=== PATIENT | female | born 1940 | race Caucasian/White ===

== ENCOUNTER 2016-08-29 01:51 | Inpatient (IN) | payer OTHER ==
--- NOTE | ~2016-08-29 | CT71 ---
[facility] A Service of [facility] RADIOLOGY TEXT RESULTS PATIENT: DONNELL TOLENTINO LOCATION: [place] [address] : 38 UNIT #: [id number] AGE: [address]: Sly Camp MD SEX: F ORDER DR: [id number] [facility] [address] [facility]. [place], [place] [address] [id number] I MR#: [id number] Acc #: [id number] NAME: DONNELL TOLENTINO : 1940 SEX: F STUDY DATE/TIME: 08/29/2016 01:35 UNIT: CEDOF ROOM: 20041 STUDY DESCRIPTION: CT Head Wo Contrast Attending Physician: Krystyna Gutierrez M.D. Ordering Physician: Micheal Mon D.O. Primary Care Physician: Primary Care Physician No MEDICAL IMAGING REPORT This report is preliminary unless electronic signature is present EXAM Head CT 08/29 0238 hours INDICATION Acute mental status changes with fever for the last 2 days. Patient currently unresponsive and confused. Generalized weakness. FINDINGS Axial images were obtained from base to the vertex without contrast. This CT exam was performed with one or more of the following radiation dose reduction techniques: automatic exposure control, adjustment of mA and/or kV according to patient size, and iterative reconstruction. Comparison made with 07/06/2016. There is generalized atrophy. Ventricular size and configuration are stable. Chronic small vessel ischemic changes are again seen in the white matter. No acute infarct or hemorrhage is seen. There are no masses. There are no skull fractures. Visualized paranasal sinuses and mastoid air cells are clear. IMPRESSION No acute intracranial abnormality. No change from 07/06/2016. Dictated by... Graham Michel Jr., M.D. THIS IS AN ELECTRONICALLY VERIFIED REPORT Graham Michel Jr., M.D. at 09/01/2016 7:20 AM DARIAN/isai TD: 08/29/2016 08:37 [facility] A Service of [facility] RADIOLOGY TEXT RESULTS PATIENT: DONNELL TOLENTINO LOCATION: [facility] 576-01 : 38 UNIT #: [id number] AGE: [address]: Sly Camp MD SEX: F ORDER DR: JOB #: [id number] MEDICAL IMAGING REPORT COPY
--- NOTE | ~2016-08-29 | US140 ---
[facility] A Service of [facility] RADIOLOGY TEXT RESULTS PATIENT: DONNELL TOLENTINO LOCATION: [facility] : 38 UNIT #: [id number] AGE: [address]: Sly Camp MD SEX: F ORDER DR: [id number] [facility] [address] [place], [place] [address] [id number] I MR#: [id number] Acc #: [id number] NAME: DONNELL TOLENTINO : 1940 SEX: F STUDY DATE/TIME: 09/02/2016 15:29 UNIT: [facility] ROOM: [facility] STUDY DESCRIPTION: US UE Veins Unilat or Ltd Stdy Attending Physician: Sly Camp M.D. Ordering Physician: Sly Camp M.D. Primary Care Physician: Primary Care Physician No MEDICAL IMAGING REPORT This report is preliminary unless electronic signature is present EXAM Right upper extremity venous duplex, 09/02/2016 HISTORY Right upper extremity edema for 1 day today, evaluate for deep vein thrombosis. FINDINGS Marques-scale images of the right upper extremity were obtained, as well as Doppler waveform spectral analysis and color flow Doppler imaging. There is normal blood flow and compressibility in the right internal jugular vein as well as the right subclavian, axillary, brachial, cephalic and basilic veins. There is no evidence of deep vein thrombosis in the right upper extremity. IMPRESSION Negative right upper extremity venous duplex with no evidence of deep vein thrombosis. Dictated by... Carmine Armstrong M.D. THIS IS AN ELECTRONICALLY VERIFIED REPORT Carmine Armstrong M.D. at 09/03/2016 10:54 AM AMINATA/jc TD: 09/02/2016 21:12 JOB #: [id number] MEDICAL IMAGING REPORT COPY
--- NOTE | ~2016-08-29 | DS ---
Unit #: [id number] #: [id number] Patient: DONNELL TOLENTINO [id number] [address] [place], [place] [address] [id number] I MR#: [id number] NAME: DONNELL TOLENTINO. ROOM: 576 Age: 75 Sex: F Admission Date: 08/29/2016 : 1940 Discharge Date: 09/03/2016 Attending Physician: Sly Camp M.D. Primary Care Physician: Kiki Primary Care Physician DISCHARGE SUMMARY ADMITTING DIAGNOSES 1. Altered mental status secondary to urosepsis. 2. Sepsis with urinary tract infection and bacteremia with Escherichia coli extended spectrum beta-lactamase. 3. History of paroxysmal atrial fibrillation. 4. Hypertension. 5. Gout. 6. History of adrenal insufficiency. 7. Acute kidney injury. CONSULTANTS 1. Dr. Vazquez. 2. Dr. Chadwick. HISTORY OF PRESENT ILLNESS The patient is a 75-year-old lady with multiple medical problems including paroxysmal atrial fibrillation, tremor, gout, hypertension, adrenal insufficiency. Presented to the emergency room from the senior living on the with the chief complaint of altered mental status. HOSPITAL COURSE In the initial evaluation, she had a CT of the head, which was negative for any acute pathology. She was febrile up to 102.2 with blood pressure 81/54. She was started on pressors, IV fluids, and her blood pressure came back up. She had 2 out of 2 blood cultures positive on the with ESBL E-coli, as well as urinary tract infection. She was switched to meropenem. Her repeat blood cultures on the were negative. For the acute kidney injury, Dr. Vazquez/Dr. Chiang followed. She had a renal ultrasound. There was a concern for renal mass. We got a CT of the abdomen without contrast, which showed it was a renal cyst. She is clinically doing better. She will be discharged back to the senior living today. She does have a PICC line in place, and I am requesting she get antimicrobials until September 14, 2016. After she is done with the antimicrobials, the PICC line can be removed. I spoke with the patient and her daughter at length, and they are agreeable for the plan. PHYSICAL EXAMINATION ON THE DAY OF DISCHARGE VITAL SIGNS: Temperature 97.6, pulse rate 74, respiratory rate 16, blood pressure 164/78. GENERAL: The patient is alert and oriented x3, lying in bed, no acute distress. HEENT: Normocephalic, atraumatic. No icterus. PERRLA. Extraocular muscles are intact. NECK: Supple. No JVD. Unit #: [id number] #: [id number] Patient: DONNELL TOLENTINO HEART: S1, S2. Regular rate and rhythm. CHEST: Bilateral equal air entry. Clear to auscultation. ABDOMEN: Soft, nontender. EXTREMITIES: No edema. Normal peripheral pulses. DISCHARGE MEDICATIONS 1. Combivent 3 mL nebulizer q.4 hours p.r.n. shortness of breath. 2. Prednisone 15 mg p.o. daily for 5 more days then stop. 3. Tylenol 650 mg q.6 p.r.n. 4. Amiodarone 100 mg p.o. daily. 5. Neurontin 100 mg at bedtime. 6. Mysoline 50 mg p.o. at bedtime. 7. Remeron 30 mg p.o. at bedtime. 8. Zofran 8 mg p.o. q.8 hours p.r.n. nausea or vomiting. 9. Benadryl 12.5 p.o. q.6 p.r.n. 10. Claritin 10 mg p.o. daily. 11. Xanax 0.25 mg q.8 hours. 12. Coreg 3.125 mg b.i.d. 13. Senna 8.6 mg p.o. b.i.d. 14. Dextromethorphan/quinidine 1 tab p.o. b.i.d. 15. Lasix 20 mg daily. 16. Lipitor 10 mg at bedtime. 17. Ferrous sulfate 325 mg p.o. daily. 18. Sinemet 10/100 mg 2 tabs p.o. q.i.d. 19. Tramadol 50 mg p.o. q.6. 20. Prilosec 20 mg b.i.d. 21. KCl 40 mEq p.o. daily. 22. Baclofen 10 mg t.i.d. 23. Celebrex 200 mg p.o. b.i.d. 24. Meropenem 500 mg IV q.8 hours until September 14, 2016. Then, it is okay to remove PICC line. NOTE: Total time spent in her care - 35 minutes. Dictated by... Zach Urbina TD: 09/03/2016 13:24 JOB #: [id number] DISCHARGE SUMMARY X X DISCHARGE SUMMARY
--- NOTE | ~2016-08-29 | CR72 ---
[facility] A Service of [facility] RADIOLOGY TEXT RESULTS PATIENT: DONNELL TOLENTINO LOCATION: [place] [address] : 38 UNIT #: [id number] AGE: [address]: Sly Camp MD SEX: F ORDER DR: [id number] [facility] [address] [place], [place] [address] [id number] I MR#: [id number] Acc #: [id number] NAME: DONNELL TOLENTINO : 1940 SEX: F STUDY DATE/TIME: 08/29/2016 01:43 UNIT: CEDOF ROOM: 53688 STUDY DESCRIPTION: CR Chest Single View Portable Attending Physician: Krystyna Gutierrez M.D. Ordering Physician: Micheal Mon D.O. Primary Care Physician: No Primary Care Physician MEDICAL IMAGING REPORT This report is preliminary unless electronic signature is present EXAM Portable chest, 08/29 at 0143 hours. INDICATIONS Fever for 2 days with mental status changes and weakness. FINDINGS AP portable chest is compared with 07/06/2016 and 06/21/2016. Cardiomegaly is stable. Prominent bilateral rei likely reflect enlarged central pulmonary arteries. Minimal infiltrate or atelectasis noted in the left base. Lungs otherwise are clear. No pneumothorax. IMPRESSION Lower volume inspiration. Stable cardiomegaly. There is mild infiltrate or atelectasis in the left base. There is prominence of the rei bilaterally, which probably reflects enlarged pulmonary arteries and pulmonary arterial hypertension. Dictated by... Graham Michel Jr., M.D. THIS IS AN ELECTRONICALLY VERIFIED REPORT Graham Michel Jr., M.D. at 09/01/2016 7:19 AM KELK/fe TD: 08/29/2016 08:05 JOB #: [id number] MEDICAL IMAGING REPORT COPY
--- NOTE | ~2016-08-29 | CT4 ---
[facility] A Service of [facility] RADIOLOGY TEXT RESULTS PATIENT: DONNELL TOLENTINO LOCATION: [place] [address] : 38 UNIT #: [id number] AGE: [address]: Sly Camp MD SEX: F ORDER DR: [id number] [facility] [address] [facility] [place], [place] [address] [id number] I MR#: [id number] Acc #: [id number] NAME: DONNELL TOLENTINO. : 1940 SEX: F STUDY DATE/TIME: 09/02/2016 10:56 UNIT: [facility] ROOM: [facility] STUDY DESCRIPTION: CT Abd and Pelv Wo Cont Attending Physician: Sly Camp M.D. Ordering Physician: Anastacia Chiang M.D. Primary Care Physician: No Primary Care Physician MEDICAL IMAGING REPORT This report is preliminary unless electronic signature is present EXAM CT abdomen and pelvis without contrast INDICATIONS Left renal mass. Burning with urination for the past week. PROCEDURE Noncontrast CT of the abdomen and pelvis TECHNIQUE This CT exam was performed with one or more of the following radiation dose reduction techniques: automatic control, adjustment of mA and/or kV according to patient size, and iterative reconstruction. COMPARISON 05/27/2014 FINDINGS Included lung bases predominately clear. The liver spleen adrenal glands pancreas unremarkable. There is a stone in the gallbladder fossa. Patient appears to be post cholecystectomy. Could represent a dropped stone or possibly a stone in a contracted gallbladder. Correlate with operative history. The bowel loops are nondilated. No evidence for a renal mass on this unenhanced study. There is a 2.1 cm cyst in the lower pole of the right kidney. PELVIS WITHOUT CONTRAST: Previous hysterectomy. No pelvic mass or fluid. No aggressive appearing bone lesion. IMPRESSION [facility] A Service [facility] RADIOLOGY TEXT RESULTS PATIENT: DONNELL TOLENTINO LOCATION: [place] [address] : 38 UNIT #: [id number] AGE: [address]: Sly Camp MD SEX: F ORDER DR: 1. A 2.1 cm cyst in the lower pole of the right kidney. No evidence for a solid renal mass on this unenhanced CT. 2. A stone in the gallbladder fossa could be a dropped stone or possibly a stone in a contracted gallbladder. The gallbladder itself is not well seen. Correlate with operative history. Dictated by... Virgilio Regan M.D. THIS IS AN ELECTRONICALLY VERIFIED REPORT Virgilio Regan M.D. at 09/03/2016 7:08 AM DILSHAD/antionette TD: 09/02/2016 14:23 JOB #: [id number] MEDICAL IMAGING REPORT COPY
--- NOTE | ~2016-08-29 | CO ---
Unit #: [id number] #: [id number] Patient: DONNELL TOLENTINO [id number] [address] [address] [id number] I MR#: [id number] NAME: DONNELL TOLENTINO. ROOM: 576 Age: 75 Sex: F Admission Date: 08/29/2016 : 1940 Attending Physician: Sly Camp M.D. Primary Care Physician: No Primary Care Physician CONSULTATION REPORT REQUESTING PHYSICIAN Dr. Chiang. REASON FOR CONSULTATION Urinary tract infection and sepsis due to resistant microorganism. HISTORY OF PRESENT ILLNESS This 75-year-old, white female with multiple medical problems including atrial fibrillation, gout, hypertension, and adrenal insufficiency presented with mental status changes and fever. Other workup showed UTI with pyuria and positive blood culture for ESBL positive E. coli for which meropenem was started. Her CT scan shows no obstruction. There was some lesion, which are still being investigated. ID was consulted for antibiotic recommendations. Patient currently stable. According to the daughter, she is significantly improved. She is more awake and responsive. She is now afebrile. She did have a fever of 102.2 in the ER on admission. She denies any pain and appears to be improving slowly. PAST MEDICAL HISTORY Adrenal insufficiency, essential tremors, atrial fibrillation, osteoarthritis, hypertension, gout, and Parkinson disease. PREVIOUS SURGERIES Tonsillectomy, EGD, (1) hysterectomy, laminectomy, and cholecystectomy. SOCIAL HISTORY Lives in detention. No history of alcohol, drug, or tobacco abuse. She is a DNR. FAMILY HISTORY Positive for lung cancer. DRUG ALLERGIES Penicillin, morphine, aspirin, and pneumococcal vaccine. MEDICATIONS Current medications are reviewed. She is on: 1. Meropenem in addition to other medications. She is tolerating meropenem well without any evidence of allergic reaction. Home medications include: 2. Tramadol. 3. Pacerone. 4. Potassium. Unit #: [id number] #: [id number] Patient: DONNELL TOLENTINO 5. Levodopa. 6. Baclofen. 7. Prilosec. 8. Celebrex. 9. Mysoline. 10. Lipitor. 11. Claritin. 12. Remeron. 13. Neurontin. 14. Benadryl. 15. Alprazolam. 16. Acetaminophen. SYSTEMIC REVIEW Currently, she has no obvious symptoms. She is more awake. She denies any abdominal pain, dysuria, cough, or mental status changes. PHYSICAL EXAMINATION GENERAL APPEARANCE: Reveals elderly, white female who is awake. She does follow simple commands and appears to be in no distress. VITAL SIGNS: Temperature 97.8, heart rate 60, respirations (2) , and blood pressure 122/59. She had a fever of 101 on August 29. Since then, she has been afebrile. She is somewhat obese with trace edema bilaterally. NECK: Supple. SKIN: IV site is clean. LUNGS: Clear. HEART: Heart sounds are normal. ABDOMEN: Soft and nontender. Feeding tube is in place. NEUROLOGIC: She is awake and able to move all four extremities. DIAGNOSTIC STUDIES LABORATORY: Blood cultures: ESBL positive E. coli. Urine culture: ESBL positive E. coli as well. Repeat blood cultures are negative to date. Sodium is 139, potassium 4, chloride 113, CO2 24, BUN 29, and creatinine 1. White count is 7.9, hemoglobin 10, and platelets 70. Urinalysis showed pyuria. IMAGING: CT scan of the abdomen and pelvis shows a cyst in the kidney. There were no solid lesions. Chest x-ray shows no effusions, mild cardiomegaly, mild interstitial prominence, and no obvious consolidation. CT of the head was negative for acute disease. IMPRESSION ESBL positive urinary tract infection with secondary bacteremia. Patient is clinically stable and improving with meropenem. RECOMMENDATIONS Agree with meropenem, which should be continued for at least 14 days. Tobramycin should be discontinued. Further recommendations will follow. Dictated by... Chuy Chadwick M.D. Unit #: [id number] #: [id number] Patient: DONNELL TOLENTINO SHEILA/fe TD: 09/04/2016 08:17 JOB #: [id number] CONSULTATION REPORT X Chuy Chadwick MD CONSULTATION REPORT
--- NOTE | ~2016-08-29 | US77 ---
[facility] A Service of [facility] RADIOLOGY TEXT RESULTS PATIENT: DONNELL TOLENTINO LOCATION: [place] [address] : 38 UNIT #: [id number] AGE: [address]: Sly Camp MD SEX: F ORDER DR: [id number] [facility] [address] [facility]. [place], [place] [address] [id number] I MR#: [id number] Acc #: [id number] NAME: DONNELL TOLENTINO. : 1940 SEX: F STUDY DATE/TIME: 08/29/2016 8:58 UNIT: CEDOF ROOM: 62929 STUDY DESCRIPTION: US Kidney Bilateral Complete Attending Physician: Sly Camp M.D. Ordering Physician: Krystyna Gutierrez M.D. Primary Care Physician: No Primary Care Physician MEDICAL IMAGING REPORT This report is preliminary unless electronic signature is present EXAM bilateral renal ultrasound, 08/29/2016. HISTORY 75-year-old male with acute kidney injury. TECHNIQUE Marques-scale ultrasound imaging of both kidneys and the urinary bladder. FINDINGS The exam is markedly limited, due to ultrasound attenuation related to patient body habitus as well as obscuring overlying bowel gas, particularly on the left. There is no hydronephrosis on the right or left. Right kidney is normal in size. Accurate left renal measurements could not be obtained, due to limitations noted above. Small benign cyst in the lower pole right kidney, best characterized on CT examination 05/27/2014. Small mass versus pseudo mass, left mid kidney, not present on the previous CT study. Recommend followup CT examination of the kidneys for further evaluation when clinically appropriate. Urinary bladder is poorly seen but is grossly negative. IMPRESSION 1. Technically limited study, as noted above. Particularly poor visualization of the left kidney. 2. No evidence of hydronephrosis on the right or left. 3. Right lower pole renal cyst, unchanged since CT examination 05/27/2014. 4. Small hypoechoic mass versus pseudo mass in the left mid kidney, [facility] RADIOLOGY TEXT RESULTS PATIENT: DONNELL TOLENTINO LOCATION: [facility] 576-01 : 38 UNIT #: [id number] AGE: [address]: Sly Camp MD SEX: F ORDER DR: present on the prior CT study. Recommend followup CT examination for further assessment when clinically appropriate. Dictated by... Cosmo Tam M.D. THIS IS AN ELECTRONICALLY VERIFIED REPORT Cosmo Tam M.D. at 08/29/2016 4:53 PM DANIEL/marcello TD: 08/29/2016 13:30 JOB #: [id number] MEDICAL IMAGING REPORT COPY
--- NOTE | ~2016-08-29 | HP ---
Unit #: [id number] #: [id number] Patient: DONNELL TOLENTINO [id number] [address] [address] [id number] I MR#: [id number] NAME: DONNELL TOLENTINO. ROOM: 95866 Age: 75 Sex: F Admission Date: 08/29/2016 : 1940 Attending Physician: Krystyna Gutierrez M.D. Primary Care Physician: No Primary Care Physician HISTORY AND PHYSICAL CHIEF COMPLAINT UTI, altered mental status. HISTORY OF PRESENT ILLNESS The patient is a 75-year-old female with a past medical history of paroxysmal atrial fibrillation, tremor, gout, hypertension, adrenal insufficiency, who presented to the emergency department from the [facility] for evaluation of the above. History is obtained from chart review and discussion with ER staff as well as the patient's daughter, Cele Nguyễn, who is at the bedside. The patient has apparently had a two day history of decreased responsiveness. The patient's daughter states that she was not complaining of anything in particular when she say her on August 27, 2016. She does have some difficulty swallowing at baseline. She had not been having any cough. Upon arrival in the emergency department, the patient's oxygen saturation was 100% on room air. Temperature was 102.2, pulse 80, blood pressure 152/68. During the course of her evaluation in the emergency department, blood pressure dropped to 81/34 systolic, most recently 107/57. She did receive one liter of normal saline in the emergency department. Chest x-ray shows findings concerning for infiltrate involving the left base. She was given vancomycin, tobramycin and aztreonam. She is being admitted to [facility] for evaluation and further treatment. PAST MEDICAL HISTORY 1. Admission to [facility] June 21 through the 2015 for altered mental status secondary to hypoglycemia. She was found to have adrenal insufficiency and was discharged home on prednisone. 2. Adrenal insufficiency, maintained on prednisone. 3. Tremor, not followed by neurology. 4. Paroxysmal atrial fibrillation, not on chronic anticoagulation. 5. Osteoarthritis. 6. Hypertension. 7. Gout. 8. Echocardiogram December 19, 2013, showed an ejection fraction of 60% with moderate concentric left ventricular hypertrophy, mild mitral regurgitation, mild tricuspid regurgitation, mild aortic regurgitation. Right ventricular systolic pressure was elevated at 30 to 40 mmHg. 9. Parkinson's. The patient's daughter denies a history of Parkinson's. However, the patient is on carbidopa/levodopa. Unit #: [id number] #: [id number] Patient: DONNELL TOLENTINO PAST SURGICAL HISTORY 1. Tonsillectomy. 2. EGD. 3. PEG tube placement and removal. 4. Hysterectomy. 5. Laminectomy. 6. Cholecystectomy. SOCIAL HISTORY The patient lives at a penitentiary. There is no tobacco or alcohol use. Her code status is a DO NOT RESUSCITATE. FAMILY HISTORY Notable for her mother having lung cancer. ALLERGIES Penicillin, morphine, aspirin, pneumococcal vaccine. HOME MEDICATIONS 1. Tramadol. 2. Pacerone. 3. Potassium. 4. Senna. 5. Iron. 6. Levodopa/carbidopa. 7. Baclofen. 8. Cranberry. 9. Prilosec. 10. Nuedexta. 11. Celebrex. 12. Mysoline. 13. Nitrofurantoin. 14. Lipitor. 15. Claritin. 16. Remeron. 17. Neurontin. 18. Zofran. 19. Benadryl. 20. Alprazolam. 21. Acetaminophen. Home medications will need to be reviewed and verified. REVIEW OF SYSTEMS A ten point review of systems is unobtainable from the patient due to altered mental status but negative except as indicated in HPI per the family. DIAGNOSTIC STUDIES CARDIOVASCULAR: EKG shows normal sinus rhythm with a rate of 77 beats per minute. A right bundle branch block is present. IMAGING: Chest x-ray shows infiltrate versus atelectasis involving the left base. CT of the head shows nothing acute. LABORATORY: Arterial blood gas shows pH of 7.455, pCO2 of 39.1, pO2 of Unit #: [id number] #: [id number] Patient: DONNELL TOLENTINO 55.3 on room air. Rapid flu screen is negative. Complete blood count notable for platelets of 90. Ammonia level is 9, lactic acid 1.9. Urinalysis notable for 3+ leukocyte esterase, 2+ protein, 3+ blood with 50-100 red blood cells, innumerable white blood cells, 4+ bacteria. Comprehensive metabolic panel notable for sodium of 134, potassium is 5.4, chloride is 97, glucose 114. BUN and creatinine 49 and 2.1 respectively. Albumin is 3.2. Tylenol, salicylate and alcohol levels are negative. INR is 1.1. Urine tox screen is positive for barbiturates. PHYSICAL EXAMINATION VITAL SIGNS: Temperature is 102.2, pulse 80, respirations 16, blood pressure 152/68. Blood pressure did go as low as 81/34. Oxygen saturation 100% on room air. GENERAL: The patient is a female who is lethargic but opens eyes to physical stimuli. HEENT: The head is atraumatic. Mucous membranes are dry. NECK: Supple. Trachea is midline. CARDIOVASCULAR: Regular rate and rhythm. LUNGS: Demonstrate scattered rhonchi. Breathing is not labored. ABDOMEN: Soft, nontender, with bowel sounds present in all four quadrants. EXTREMITIES: Nontender with no pedal edema. NEURO: The patient is lethargic. She opens eyes to physical stimuli. She is moving all extremities. She is not following commands. PSYCH: Unable to assess. SKIN: Skin of examined areas if warm and dry. ASSESSMENT The patient is a 75-year-old female with: 1. Altered mental status. 2. Sepsis. 3. Healthcare-associated pneumonia. 4. Urinary tract infection. 5. Acute kidney injury: The patient's creatinine was 0.9 on July 06, 2016. It is 2.1 today. 6. Hyperkalemia. 7. Thrombocytopenia, concerning for possible severe sepsis: The patient's platelets have previously been mostly normal. The lowest prior was 135 on May 27, 2014. Platelets were 160 on July 06, 2016. Platelets are 90 today. 8. Paroxysmal atrial fibrillation, not on chronic anticoagulation. 9. Tremor: The patient's daughter denies a history of Parkinson disease. The patient is on carbidopa/levodopa. 10. Gout. 11. Hypertension: The patient's blood pressure has been low in the emergency department. Unit #: [id number] #: [id number] Patient: DONNELL TOLENTINO 12. Adrenal insufficiency, maintained on prednisone although I do not see prednisone listed as a medication from the penitentiary. Home medications will need to be reviewed and verified. PLAN 1. Admit to intermediate level. 2. NPO until more awake and speech evaluation. 3. Speech therapy to evaluate and treat. 4. Normal saline at 75 mL/hour. 5. TSH, B12 and folate. 6. Neuro checks. 7. Blood cultures x2. 8. Sputum culture and sensitivity. 9. Procalcitonin level. 10. Vancomycin IV, tobramycin IV, aztreonam IV for healthcare-associated pneumonia and urinary tract infection pending further workup. 11. Duo-Nebs q.4 hours. 12. Urine culture and sensitivity on urine in the lab. 13. Sepsis protocol with repeat lactic acid. 14. Urine sodium, creatinine and eosinophils. 15. Renal ultrasound. 16. Consult Dr. Chiang regarding acute kidney injury. 17. Check CPK. 18. Hold all home medications. 19. Strict I's and O's. 20. Repeat BMP to follow up hyperkalemia. 21. Serial cardiac enzymes. 22. Monitor blood pressure closely. 23. Repeat labs in the morning. 24. Regarding code status, the patient is a DO NOT RESUSCITATE. Additional workup and consultants based on above. Dictated by Krystyna Gutierrez M.D. LIBIA/angie TD: 08/29/2016 07:05 JOB #: [id number] HISTORY AND PHYSICAL X Krystyna Gutierrez MD X HISTORY AND PHYSICAL
--- NOTE | ~2016-08-29 | CO ---
Unit #: [id number] #: [id number] Patient: DONNELL TOLENTINO [id number] [address] [place], [place] [address] [id number] I MR#: [id number] NAME: DONNELL TOLENTINO. ROOM: 576 Age: 75 Sex: F Admission Date: 08/29/2016 : 1940 Attending Physician: Sly Camp M.D. Consultation Date: 08/29/2016 CONSULTATION REPORT REASON FOR CONSULTATION Acute kidney injury. HISTORY OF PRESENT ILLNESS Ms. Tolentino is a 75-year-old white female, transferred from her penitentiary due to concern about her altered mental status. This had apparently been going on a few days at the penitentiary. Evaluation here showed some hypotension with a blood pressure drop into the 80s as well as I suspected urinary tract infection and pneumonia. She has been started on IV fluids and antibiotics, and seems to be improving today. We were asked to get involved because of the acute kidney injury present on admission. In addition to the hypotension and probable dehydration, she is also noted to be on Celebrex at the nursing facility. The patient is thirsty currently and asking for Sprite. She is immobile according to her son and gets around via wheelchair. There is no distress at this time. She did urinate just now a significant amount into her briefs and into the bed. There has been no reports of vomiting or diarrhea. No rashes or itching. PAST MEDICAL HISTORY Significant for adrenal insufficiency, tremor, paroxysmal atrial fibrillation, osteoarthritis, hypertension, gout, questionable Parkinson's but the son denies this. PAST SURGICAL HISTORY Tonsillectomy, PEG tube replacement and removal, hysterectomy, laminectomy, and cholecystectomy. HOME MEDICATIONS Tramadol, Pacerone, potassium, senna, iron, levodopa-carbidopa, baclofen, cranberry, Prilosec, Celebrex, Mysoline, dextromethorphan, nitrofurantoin, Lipitor, Claritin, Remeron, Neurontin, Zofran, Benadryl, Xanax, and acetaminophen. ALLERGIES She has quoted allergy to penicillin, morphine, and aspirin as well as pneumonia vaccine. FAMILY HISTORY The patient's son denies any family history of kidney disease or dialysis. There is a family history of lung cancer. SOCIAL HISTORY She is a penitentiary resident. She quit smoking 40 years ago. No alcohol or drug abuse. She is a do not resuscitate. Unit #: [id number] #: [id number] Patient: DONNELL TOLENTINO A REVIEW OF SYSTEMS A complete 12-point review of systems was attempted, but certainly made difficult due to her altered mental status and limited communication this afternoon. She denies any pains, no distress this afternoon. No nosebleed. No complaints of sore throat. She has been running fevers. No chills. No chest pain or palpitations. No hemoptysis. No bright red blood per rectum or melena. No hematuria. No significant swelling. No itching. No flank pain. No bleeding issues. No recent weight changes as far as the son knows. Unless otherwise indicated, the review of systems was not able to be obtained. PHYSICAL EXAMINATION VITAL SIGNS: Temperature 102.5, pulse 79, respiratory rate 16, and blood pressure 162/83 after being as low as 81/34. GENERAL: This is an elderly 75-year-old white female, who is alert, minimal conversation, but in no acute distress. She does ask for a Sprite. HEENT: Head is atraumatic and normocephalic. Eyes show pink conjunctivae with no scleral icterus. No nasal drainage or nosebleed. Oropharynx is dry. She does have a narrow posterior pharyngeal airway. NECK: Thick with no JVD. HEART: Regular rate and rhythm with distant S1 and S2. Soft murmur present without rub. LUNGS: Do show a few rhonchi bilaterally without wheezing. Breathing is nonlabored. ABDOMEN: Protuberant and soft, nontender, bowel sounds are present. EXTREMITIES: No lower extremity cyanosis or pitting edema. SKIN: Dry without rashes. MUSCULOSKELETAL: No joint effusions noted. No CVA tenderness to palpation. NEUROLOGIC: Noteworthy for some generalized weakness, but no gross motor deficits. LYMPHATIC: There is no neck or cervical lymphadenopathy. PSYCHIATRIC: Mood appears depressed. DIAGNOSTIC STUDIES LABORATORY RESULTS: Chemistry this morning; sodium 136, potassium 4.9, chloride 103, bicarb 24, glucose 115, BUN 48, creatinine 1.9. Procalcitonin was 25. Spot urine sodium 21. TSH normal. CK level was 66. Admission chemistry; sodium 134, potassium 5.4, creatinine was 2.1. Urinalysis did show numerous red and white blood cells as well as bacteria with culture pending. Admission CBC showed platelet count of 90 with a left shift, no peripheral eosinophilia. Flu screen was negative. Prior labs from 07/06/2016 here showed a creatinine of 0.9. IMAGING STUDIES: CT of the head done showed no acute abnormality. Chest x-ray showed left-sided pneumonia. CT of the abdomen from 05/2014 showed some small cyst in the lower pole of the right kidney with no hydronephrosis. ASSESSMENT AND PLAN 1. Acute kidney injury. This looks to be multifactorial in nature, but primarily prerenal with dehydration, hypotension, as well as infection Unit #: [id number] #: [id number] Patient: DONNELL TOLENTINO issues. She was also on Celebrex at the penitentiary which has been discontinued. We will continue fluids and monitor her response. 2. Hyperkalemia. This is improved on recheck labs in her penitentiary. Potassium chloride was discontinued. 3. Hyponatremia. This is likely hypovolemic hyponatremia and seems to be improving with saline, which will be continued. 4. Urinary tract infection with pneumonia, on antibiotics per primary team. 5. Mental status changes which does seem to be getting better according to her son. 6. Immobilization syndrome. 7. History of tremor. 8. The patient is a do not resuscitate. 9. I did discuss all of her kidney issues with her son. I would like to thank Dr. Gutierrez for this consult and the opportunity to participate in evaluation and care Ms. Tolentino. Dictated by... Louis Vazquez Jr., M.D. LATISHA/kathy TD: 08/30/2016 02:20 JOB #: [id number] CONSULTATION REPORT X Louis Vazquez MD CONSULTATION REPORT
--- NOTE | ~2016-08-29 | CR72 ---
[facility] A Service of [facility] & [facility] RADIOLOGY TEXT RESULTS PATIENT: DONNELL TOLENTINO LOCATION: [place] [address] : [birth year] UNIT #: [id number] AGE: [address]: Sly Camp MD SEX: F ORDER DR: [id number] [facility] [address] [facility]. [place], [place] [address] [id number] I MR#: [id number] Acc #: [id number] NAME: DONNELL TOLENTINO : 1940 SEX: F STUDY DATE/TIME: 08/31/2016 17:19 UNIT: [facility] ROOM: [facility] STUDY DESCRIPTION: CR Chest Single View Portable Attending Physician: Sly Camp M.D. Ordering Physician: Ed Doctor [id number] [facility] Primary Care Physician: Primary Care Physician No MEDICAL IMAGING REPORT This report is preliminary unless electronic signature is present EXAM Portable chest HISTORY Cough, congestion, fever x4 days COMPARISON 08/29/2016 FINDINGS Portable view of the chest demonstrates improved lung volumes. Mild patchy hyperlucency and interstitial prominence suggest underlying emphysema and fibrosis. No dense airspace disease or consolidation. No sizeable effusions. Mild cardiomegaly and diffuse aortic atherosclerotic changes. No invasive tubes or lines. No visible pneumothorax. Dictated by... Haresh Nielsen M.D. THIS IS AN ELECTRONICALLY VERIFIED REPORT Haresh Nielsen M.D. at 09/01/2016 5:04 PM Lupis TD: 09/01/2016 07:43 JOB #: [id number] MEDICAL IMAGING REPORT COPY
--- NOTE | ~2016-08-29 | EKG ---
PATIENT: DONNELL TOLENTINO UNIT #: [id number] Ventricular Rate: 77 BPM Atrial Rate: 77 BPM P-R Interval: 186 ms QRS Duration: 136 ms Q-T Interval: 408 ms QTC Calculation(Bezet): 461 ms P [place]: 56 degrees Calculated R [place]: -62 degrees Calculated T [place]: 18 degrees Diagnosis Line: Normal sinus rhythm Diagnosis Line: Right bundle branch block Diagnosis Line: Left anterior fascicular block Diagnosis Line: Bifascicular block Diagnosis Line: Minimal voltage criteria for LVH, may be normal Diagnosis Line: variant Diagnosis Line: Septal infarct , age undetermined Diagnosis Line: Abnormal ECG Diagnosis Line: When compared with ECG of 06-JUL-2016 19:29, Diagnosis Line: Septal infarct is now Present Diagnosis Line: Nonspecific T wave abnormality has replaced Diagnosis Line: inverted T waves in Inferior leads Diagnosis Line: Nonspecific T wave abnormality, improved in Diagnosis Line: Anterior leads Diagnosis Line: Confirmed by FAMILIA TATE MD ([id number]) on 08/29/2016 Diagnosis Line: 5:23:31 PM INTERPRETING MD: BEBETO RUGGIERO
[2016-08-29 01:50] LABS: URINE SOURCE CLEAN CATCH
[~2016-08-29 01:51] MED LIST: ACETAMINOP160 MG/12 GT; ACETAMINOP325 MG/10. GT; ACETAMINOPHEN650 M4 PO; ALBUTEROL17 GM INH; ALPRAZOLAM GT; ALPRAZOLAM PO; ALPRAZOLAM0.25 MG PO; AMIODARONE HCL100 MG GT; AMITRIPTYLINE PO; APAP325 M1 GT; AUGMENTIN250 MG/5 M GT; AUGMENTIN250 MG/52; BAYER CHEWABLE81 MG GT; BENADRYL12.5 MG PO; BIOFREEZE118 ML; BIOFREEZE118 ML TP; BISACODYL EC5 M1 GT; BISACODYL10 MG/SUP3 RC; BYSTOLIC5 MG PO; CARBIDOPA-LEVO1 EACH PO; CARDIZEM CD GT; CELEBREX PO; CELEBREX100 MG PO; CELECOXIB100 MG PO; CELEXA20 MG GT; CITALOPRAM20 MG/10 M PO; CLARITIN10 M3 PO; CODEINE PO; CRANBERRY250 MG PO; CYMBALTA GT; CYMBALTA PO; DULCOLAX10 MG/SUPP RC; ENEMA READY TO133 ML RC; FEROSUL220 MG/5 M GT; FERRO-TIME325 MG PO; FERROUS SU220 MG/52 PO; FLEXERIL10 MG GT; FLORANEX T1 TAB.CHE3 GT; FUROSEMIDE40 MG PO; FUROSEMIDE40 MG/5 ML PO; GERI LANTA; HEART MEDICATION PO; HYDROCODON-ACE1 EAC7 GT; HYDROCODONE-APA1 T55 GT; IMMODIUM1 MG/5 M1 GT; IMODIUM A-D1 MG/5 ML GT; IPRATR-ALBUTEROL3 ML IH; IRON1 TA1 PO; JEVITY 1.5 CA1000 ML; JEVITY1000 M1 GT; K-SOL20 MEQ/15; KCL GT; KLOR-CON SPRIN10 MEQ PO; LANOXIN GT; LASIX GT; LIDODERM30 EA TOP; LIORESAL10 MG PO; LIPITOR PO; LIPITOR20 MG GT; LODINE400 M1 PO; MILK OF MAGNESIA PO; MIRALAX PO; MIRALAX17 GM GT; MIRALAX17 GM PO; MYSOLINE50 M1 GT; MYSOLINE50 M1 PO; NEURONTIN PO; NILSTAT1 ML PO; NITROFURANTOIN100 M3 PO; NITROFURANTOIN100 M4 PO; NUEDEXTA 20-101 EACH PO; OMEPRAZOLE20 M2 GT; OMEPRAZOLE40 M1 PO; OXYBUTYNIN CL PO; OXYBUTYNIN5 MG/5 ML GT; OXYBUTYNIN5 MG/5 ML PO; PACERONE PO; POLYETHYLENE GL17 GM GT; PREDNISONE5 MG/5 ML PO; PRILOSEC GT; PRILOSEC PO; PRIMIDONE50 MG GT; PROMETHAZINE PO; PROPRANOLO40 MG/5 ML PO; REGLAN GT; REGLAN5 MG PO; REMERON PO; SENNA8.6 M1 PO; SINEMET 10-1001 EACH PO; SODIUM CHLORID100 ML GT; SOTALOL160 MG GT; SYMBICORT INH; TRAMADOL HCL50 M1 GT; TRAMADOL HCL50 M1 PO; TRAMADOL HCL50 M2 GT; TYLENOL325 MG/10. PO; VIBRAMYCIN50 MG/5 ML PO; XARELTO10 MG PO; XARELTO20 MG GT; XARELTO20 MG PO; ZOFRAN PO; ZOLOFT20 MG/1 ML PO
[2016-08-29 01:55] LABS: ARTERIAL BLD GAS O2 SATURATION 88.2 % (90.0-100.0); ARTERIAL BLOOD GAS CARBOXY HB 1.4 %sat (0.0-9.0); ARTERIAL BLOOD GAS HCO3 27.5 mmol/L; ARTERIAL BLOOD GAS MET HB 1.1 %sat (0.0-2.0); ARTERIAL BLOOD GAS PCO2 39.1 mmHg (35.0-45.0); ARTERIAL BLOOD GAS pH 7.455 (7.350-7.450)
[2016-08-29 01:59] LABS: ARTERIAL BLOOD GAS ALLEN TEST NORMAL; ARTERIAL BLOOD GAS ART SITE LEFT RADIAL; ARTERIAL BLOOD GAS PO2 55.3 mmHg (80.0-100); ARTERIAL DRAW? YES
[2016-08-29 02:00] LABS: URINE APPEARANCE TURBID; URINE BILIRUBIN NEG (NEG); URINE BLOOD 3+ (NEG); URINE COLOR YELLOW; URINE GLUCOSE NEG (NEG); URINE KETONE NEG (NEG); URINE LEUKOCYTE ESTERASE 3+ (NEG); URINE NITRATE NEG (NEG); URINE PH 5.5 (5-8); URINE PROTEIN 2+ (NEG); URINE SPECIFIC GRAVITY 1.016 (1.003-1.035)
[2016-08-29 02:03] LABS: CULTURE INDICATED? YES; URBCS1 AUWI 50-100 /[HPF] (0-2); URINE BACTERIA AUWI 4+ (NEGATIVE); URINE SQUAMOUS EPITHELIAL CELL MOD /[HPF]; UWBCS1 AUWI INNUM (0-5)
[2016-08-29 02:12] LABS: INFLUENZA A NEG (NEG); INFLUENZA B NEG (NEG)
[2016-08-29 02:17] LABS: BASOPHIL% 0.2 % (0-2.5); EOSINOPHIL% 0.1 % (0.0-7.0); HEMATOCRIT 37.2 % (35.0-45.0); HEMOGLOBIN 12.5 gm/dL (12.0-16.0); LYMPHOCYTE# 0.5 X10e3 (1.0-3.5); LYMPHOCYTE% 5.2 % (17.0-45.0); MEAN CELL VOLUME 90.2 FL (83-96); MEAN CORPUSCULAR HEMOGLOBIN 30.3 PG (28-34); MEAN CORPUSCULAR HGB CONC 33.6 g/dL (30-36); MEAN PLATELET VOLUME 8.7 FL (6.5-11.5); MONOCYTE# 1.1 X10e3 (0-1.0); MONOCYTE% 10.9 % (3.0-12.0); NEUTROPHIL# 8.2 X10e3 (1.5-7.1); NEUTROPHIL% 83.6 % (40-75); RED BLOOD COUNT 4.13 X10e (3.90-5.30); RED CELL DISTRIBUTION WIDTH 15.4 % (11.0-15.5); WHITE BLOOD COUNT 9.8 X10e3 (4.0-10.5)
[2016-08-29 02:18] LABS: DIFF IND NO; PLATELET COUNT 90 X10e3 (140-420)
[2016-08-29 02:22] LABS: ALBUMIN SERUM 3.2 g/dL (3.5-5.0); ALKALINE PHOSPHATASE 84 U/L (32-92); ALT (SGPT) 8 U/L (10-40); AST (SGOT) 18 U/L (10-42); BILIRUBIN, DIRECT 0.2 mg/dL (0.0-0.2); BILIRUBIN,INDIRECT 0.6 mg/dL (0.0-0.9); BILIRUBIN,TOTAL 0.8 mg/dL (0.2-2.0); BLOOD UREA NITROGEN 49 mg/dL (9-23); BUN/CREATININE RATIO 23.33; CALCIUM SERUM 9.2 mg/dL (8.4-10.2); CARBON DIOXIDE 27 mmol/L (22-31); CHLORIDE 97 mmol/L (100-111); CREATININE SERUM 2.1 mg/dL (0.6-1.4); GLOM FILT RATE Estimated 24.3 mL/min (>60); GLUCOSE FASTING 114 mg/dL (70-110); POTASSIUM 5.4 mmol/L (3.5-5.1); PROTEIN TOTAL SERUM 6.3 g/dL (6.0-8.3); SALICYLATE <4.0 mg/dL; SODIUM 134 mmol/L (135-145)
[2016-08-29 02:23] LABS: AMPHETAMINE NEG (NEG); BARBITURATES POS (NEG); BENZODIAZEPINES NEG (NEG); COCAINE NEG (NEG); MARIJUANA NEG (NEG); OPIATES NEG (NEG); TRICYCLIC ANTIDEPRESSANTS NEG (NEG); U METHADONE NEG (NEG)
[2016-08-29 02:23] LABS: ACETAMINOPHEN <10 ug/mL; ALCOHOL BLOOD <5 mg/dL ([, 0]); INR 1.1; PARTIAL THROMBOPLASTIN TIME 28.6 SECONDS (23.5-31.3); PROTHROMBIN TIME (PATIENT) 11.2 SECONDS (9.6-11.5)
[2016-08-29 07:50] LABS: BUN/CREATININE RATIO 25.26; CALCIUM SERUM 8.6 mg/dL (8.4-10.2); CREATININE SERUM 1.9 mg/dL (0.6-1.4); GLOM FILT RATE Estimated 27.2 mL/min (>60); POTASSIUM 4.9 mmol/L (3.5-5.1)
[2016-08-29 08:09] LABS: PROCALCITONIN 25.79 NG/ML
[2016-08-29 08:13] LABS: %MB 2.7 % (0.0-4.0); MB 1.8 ng/ml
[2016-08-29 09:54] LABS: CREATININE,RANDOM URINE 102 mg/dL; SODIUM URINE RANDOM 21 mmol/L
[2016-08-29 10:22] LABS: FOLATE (FOLIC ACID) 18.9 ng/mL (>5.8)
[2016-08-29 18:36] LABS: %MB 2.3 % (0.0-4.0); MB 2.5 ng/ml
[2016-08-30 08:27] LABS: MEAN CELL VOLUME 89.9 FL (83-96); MEAN CORPUSCULAR HEMOGLOBIN 30.1 PG (28-34); MEAN CORPUSCULAR HGB CONC 33.5 g/dL (30-36); MEAN PLATELET VOLUME 8.7 FL (6.5-11.5); RED BLOOD COUNT 3.45 X10e (3.90-5.30); RED CELL DISTRIBUTION WIDTH 15.2 % (11.0-15.5)
[2016-08-30 08:28] LABS: HEMOGLOBIN 10.4 gm/dL (12.0-16.0)
[2016-08-30 09:00] LABS: ALBUMIN SERUM 2.2 g/dL (3.5-5.0); BILIRUBIN,TOTAL 0.5 mg/dL (0.2-2.0); BUN/CREATININE RATIO 30.66; CALCIUM SERUM 7.5 mg/dL (8.4-10.2); CREATININE SERUM 1.5 mg/dL (0.6-1.4); GLOM FILT RATE Estimated 35.8 mL/min (>60); POTASSIUM 3.9 mmol/L (3.5-5.1); PROTEIN TOTAL SERUM 4.4 g/dL (6.0-8.3)
[2016-08-31 06:41] LABS: HEMATOCRIT 31.1 % (35.0-45.0); HEMOGLOBIN 10.2 gm/dL (12.0-16.0); MEAN CELL VOLUME 90.3 FL (83-96); MEAN CORPUSCULAR HEMOGLOBIN 29.8 PG (28-34); RED BLOOD COUNT 3.44 X10e (3.90-5.30); WHITE BLOOD COUNT 8.3 X10e3 (4.0-10.5)
[2016-08-31 07:02] LABS: BUN/CREATININE RATIO 34.61; CALCIUM SERUM 8.3 mg/dL (8.4-10.2); CREATININE SERUM 1.3 mg/dL (0.6-1.4); GLOM FILT RATE Estimated 42.2 mL/min (>60); POTASSIUM 4.3 mmol/L (3.5-5.1)
[2016-09-01 07:51] LABS: HEMATOCRIT 32.4 % (35.0-45.0); HEMOGLOBIN 10.6 gm/dL (12.0-16.0); MEAN CELL VOLUME 89.9 FL (83-96); MEAN CORPUSCULAR HEMOGLOBIN 29.4 PG (28-34); MEAN CORPUSCULAR HGB CONC 32.8 g/dL (30-36); MEAN PLATELET VOLUME 8.5 FL (6.5-11.5); RED BLOOD COUNT 3.6 X10e (3.90-5.30); RED CELL DISTRIBUTION WIDTH 15.3 % (11.0-15.5); WHITE BLOOD COUNT 11.1 X10e3 (4.0-10.5)
[2016-09-01 08:19] LABS: BUN/CREATININE RATIO 30.83; CALCIUM SERUM 8.6 mg/dL (8.4-10.2); CREATININE SERUM 1.2 mg/dL (0.6-1.4); GLOM FILT RATE Estimated 46.3 mL/min (>60); POTASSIUM 3.6 mmol/L (3.5-5.1)
[2016-09-02 07:38] LABS: HEMATOCRIT 30.3 % (35.0-45.0); MEAN CELL VOLUME 89.9 FL (83-96); MEAN CORPUSCULAR HEMOGLOBIN 29.6 PG (28-34); MEAN PLATELET VOLUME 9.8 FL (6.5-11.5); RED BLOOD COUNT 3.37 X10e (3.90-5.30); RED CELL DISTRIBUTION WIDTH 15.8 % (11.0-15.5); WHITE BLOOD COUNT 7.9 X10e3 (4.0-10.5)
[2016-09-02 10:36] LABS: CALCIUM SERUM 8.5 mg/dL (8.4-10.2); GLOM FILT RATE Estimated 57.1 mL/min (>60); MAGNESIUM 1.9 mg/dL (1.6-3.0)
[2016-09-03 10:07] LABS: HEMOGLOBIN 9.6 gm/dL (12.0-16.0); MEAN CELL VOLUME 89.2 FL (83-96); MEAN CORPUSCULAR HEMOGLOBIN 29.5 PG (28-34); MEAN CORPUSCULAR HGB CONC 33.1 g/dL (30-36); MEAN PLATELET VOLUME 7.6 FL (6.5-11.5); RED BLOOD COUNT 3.25 X10e (3.90-5.30); RED CELL DISTRIBUTION WIDTH 15.8 % (11.0-15.5); WHITE BLOOD COUNT 8.1 X10e3 (4.0-10.5)
[2016-09-03 10:43] LABS: BLOOD UREA NITROGEN 26 mg/dL (9-23); CALCIUM SERUM 8.7 mg/dL (8.4-10.2); CARBON DIOXIDE 26 mmol/L (22-31); CHLORIDE 108 mmol/L (100-111); CREATININE SERUM 0.8 mg/dL (0.6-1.4); GLOM FILT RATE Estimated ABOVE60 mL/min (>60); GLUCOSE FASTING 91 mg/dL (70-110); SODIUM 141 mmol/L (135-145)
== END 2016-09-03 16:59 | DRG 871 ==
LOC: CED 01:51 → CEDOF 05:15 → C5C 14:56
PROVIDERS: Emergency Medicine; Family Medicine; Internal Medicine; Internal Medicine Nephrology
PROC: 05H633Z Insertion of Infusion Device into Left Subclavian Vein, Percutaneous Approach (ICD-10-PCS; principal; 2016-09-01)
PROC: B547ZZA Ultrasonography of Left Subclavian Vein, Guidance (ICD-10-PCS; 2016-09-01)
DX: A41.51 Sepsis due to Escherichia coli [E. coli] (principal); J18.9 Pneumonia, unspecified organism; N17.9 Acute kidney failure, unspecified; E27.40 Unspecified adrenocortical insufficiency; D69.6 Thrombocytopenia, unspecified; N39.0 Urinary tract infection, site not specified; E87.1 Hypo-osmolality and hyponatremia; G20 Parkinson's disease; I48.0 Paroxysmal atrial fibrillation; M10.9 Gout, unspecified; I10 Essential (primary) hypertension; Z79.52 Long term (current) use of systemic steroids; M19.90 Unspecified osteoarthritis, unspecified site; I08.3 Combined rheumatic disorders of mitral, aortic and tricuspid valves; Z90.710 Acquired absence of both cervix and uterus; Z90.49 Acquired absence of other specified parts of digestive tract; Z88.0 Allergy status to penicillin; Z88.7 Allergy status to serum and vaccine; Z88.8 Allergy status to other drugs, medicaments and biological substances; Z87.891 Personal history of nicotine dependence; E87.5 Hyperkalemia; Z66 Do not resuscitate; M62.3 Immobility syndrome (paraplegic); B96.20 Unspecified Escherichia coli [E. coli] as the cause of diseases classified elsewhere
CPT/HCPCS: 36415; 36600; 70450; 71010; 74176; 76770; 80048; 80053; 80076; 80200; 80202; 80307; 81003; 82140; 82308; 82550; 82553; 82570; 82607; 82746; 82803; 82947; 83605; 83735; 84300; 84443; 84484; 85025; 85027; 85610; 85730; 87040; 87077; 87086; 87088; 87186; 87804; 89190; 92526; 92610; 93005; 93971; 94640; 94760; 97110; 97163; 97530; 99285; C9113; G0480; G8978-GP; G8979-GP; G8996-GN; G8997-GN; G8998-GN; J0692; J1642; J1956; J2185; J2920; J3260; J3370

== ENCOUNTER → 2016-09-23 | Outpatient (CLI) | payer OTHER ==
[~2016-09-23] MED LIST changes: +ACCU-CHEK1 EAC1; +ACEPHEN650 MG PR; +AMIODARONE HCL100 MG PO; +ATORVASTATIN CA10 MG PO; +BACLOFEN10 MG PO; +CELECOXIB200 MG PO; +COREG3.125 MG PO; +DIGESTIVE PROB250 MG PO; +FLOVENT DISKUS50 MCG INH; +INVANZ1 GM IV; +IPRATR-ALBUTEROL3 ML INH; +IPRATROPIU0.2 MG/1 M INH; +LASIX20 MG PO; +MECLIZINE HCL12.5 M2 PO; +MIRTAZAPINE30 M1 PO; +NEURONTIN100 MG PO; +OMEPRAZOLE20 M2 PO; +PATIENT'S PHARMACY; +POLYETHYLENE GLY1 GM PO; +PREDNISONE PO; +ROBITUSSIN COU237 M2 PO; +TRAMADOL HCL50 M2 PO; +TRIMPEX100 MG PO; +ZOFRAN8 MG PO; +ZYRTEC10 M1 PO; +[UNRECOGNIZED DRUG - OTHER] PO
[2016-09-23 10:20] LABS: POC - CREATININE 1.19 mg/dL (0.44-1.03)
== END | disposition home or self-care (01) ==
LOC: CCAT 08:57
PROVIDERS: Urology
DX: N28.89 Other specified disorders of kidney and ureter (principal)
CPT/HCPCS: 82565

== ENCOUNTER → 2016-09-24 | Outpatient (CLI) | payer OTHER ==
[2016-09-24 18:55] LABS: POC - CREATININE 1.22 mg/dL (0.44-1.03)
== END | disposition home or self-care (01) ==
LOC: CCAT 12:07
PROVIDERS: Urology
DX: N28.89 Other specified disorders of kidney and ureter (principal); Z53.9 Procedure and treatment not carried out, unspecified reason
CPT/HCPCS: 82565

== ENCOUNTER 2016-11-13 10:35 | Inpatient (IN) | payer OTHER ==
--- NOTE | ~2016-11-13 | FU ---
[facility] Nutrition Therapy DATE: 11/20/16 Patient: DONNELL TOLENTINO Physician: ALIYAH Address: [facility] Room/Bed: [address] [place] [address], Zip: [place] [address] Admit Date: 11/13/16 Date of : [birth year] Height: 5 6 Weight: 218 99 NUTRITION MONITORING/FOLLOW-UP: Reason: Nutrition follow-up Admitting Dx: 75 y/o female admitted from [facility] with UTI and AMS Anthropometrics: Ht: 66", admission wt: 98.5 kg, current wt: 99 kg, BMI: 35 (Stage I obese) Labs: Na 127, glucose POC 89-95, K+ WNL, no Mg/Phos Meds: Zofran prn, PPI, Miralax, Senokot, Prednisone, Coreg, D5NS w/ Kcl @ 100 ml/hr GI: Last BM 11/18 Skin: Issues reviewed, no change, no edema Assessment: Chart reviewed, events noted. Patient on room air, A/O x 3, in and out of mental status, working with PT. Patient was on HH/CC diet, liberalized to regular yesterday 11/19 however Ensure was not reordered with diet change. Patient still with poor PO and needs continued encouragement to eat, current intake ~25-50% of meals. Agree with regular diet, will reorder supplements. Weight stable since admission, glucose well controlled. See nutrition goals, dx and recs as stated below. Dx: Inadequate nutrient intake decreased appetite AEB PO intake 25-50%, need for ONS - ACTIVE Intervention: Reorder Ensure TID, encourage PO Monitoring, Evaluation and Goals: 1. PO intake > 50% of meals - IN PROGRESS, WORKING TOWARDS GOAL 2. Glucose WNL - MET Recommendations: 1. Agree with regular diet to liberalize food choices due to continued decreased appetite and variable oral intake. Appreciate staff/family to encourage PO intake and assist with meals and ordering as needed. 2. Will re-order vanilla Ensure TID for supplemental nutrition. Status: Mild-moderate nutrition risk [facility] Nutrition Therapy DATE: 11/20/16 Patient: DONNELL TOLENTINO Physician: ALIYAH Address: [facility] Room/Bed: [address] [place] [address], Zip: [place] [address] Admit Date: 11/13/16 Date of : 38 Height: 5 6 Weight: 218 99 Respectfully, Vicki Toure RD, LD [employer] and Nutrition[facility] Services [facility] cc: client file
--- NOTE | ~2016-11-13 | CT71 ---
[facility] A Service of [facility] & [facility] RADIOLOGY TEXT RESULTS PATIENT: DONNELL TOLENTINO LOCATION: [facility] 325-01 : [birth year] UNIT #: [id number] AGE: [address]: Sly Camp MD SEX: F ORDER DR: [id number] [facility] [address] [place], [place] [address] [id number] I MR#: [id number] #: [id number] NAME: DONNELL TOLENTINO : 1940 SEX: F STUDY DATE/TIME: 11/13/2016 13:58 UNIT: [facility] ROOM: [address] STUDY DESCRIPTION: CT Head Wo Contrast Attending Physician: Krystyna Gutierrez M.D. Ordering Physician: Marsha Jimenez M.D. Primary Care Physician: Derek Odonnell Jr., M.D. MEDICAL IMAGING REPORT This report is preliminary unless electronic signature is present EXAM CT head 11/13/2016. HISTORY New onset confusion today with hallucinations, urinary tract infection. Diffuse abdominal pain times today. TECHNIQUE CT head performed skull base through vertex without intravenous contrast. This CT exam was performed with one or more of the following radiation dose reduction techniques: automatic exposure control, adjustment of mA and/or kV according to patient size, and iterative reconstruction. COMPARISON 07/06/2016 FINDINGS No intracranial hemorrhage. No evidence of acute cortical ischemia. Periventricular and deep white matter tract hypodensities bilaterally, but more extensive on the left than right. Appearance and distribution unchanged from prior study. Findings most consistent with sequelae of chronic microvascular ischemia. The midline structures are nondisplaced and the basal ganglia are intact without evidence of acute abnormality. The ventricles, cisterns and sulci show mild generalized enlargement. More pronounced in the bilateral frontal lobes. Similar appearance on prior study. There are cavernous carotid arterial calcifications. No intra- or extraaxial mass effect. No abnormal intracranial fluid collection. The intraorbital soft tissues are unremarkable. No fracture. Air-fluid levels in bilateral frontal sinuses, sphenoid sinuses, and in the left maxillary sinus. Mucosal thickening and small air-fluid levels in bilateral ethmoid air cells. Mastoid air cells clear. [facility] A Service of [facility] & [facility] RADIOLOGY TEXT RESULTS PATIENT: DONNELL TOLENTINO LOCATION: [facility] 325-01 : 38 UNIT #: [id number] AGE: [address]: Sly Camp MD SEX: F ORDER DR: IMPRESSION 1. No acute abnormality is seen in the brain. There is mild atrophic change, more pronounced in the bilateral frontal lobes. This is a stable finding. There are periventricular and deep white matter tract probable sequelae of chronic microvascular ischemia. More pronounced and more extensive in the left cerebral hemisphere than right. This finding also stable. 2. Vascular calcifications. 3. Multifocal sinus air-fluid levels suggesting multifocal acute sinusitis. Air-fluid levels in bilateral frontal sinuses, bilateral ethmoid air cells, bilateral sphenoid sinuses, and left maxillary sinus. The mastoid air cells remain clear. Dictated by... Tim Dick M.D. THIS IS AN ELECTRONICALLY VERIFIED REPORT Tim Dick M.D. at 11/14/2016 11:32 PM RAJESH/marcello TD: 11/13/2016 19:18 JOB #: [id number] MEDICAL IMAGING REPORT Page 1 of 1 COPY
--- NOTE | ~2016-11-13 | HP ---
Unit #: [id number] #: [id number] Patient: DONNELL TOLENTINO [id number] [address] [place], [place] [address] [id number] E MR#: [id number] NAME: DONNELL TOLENTINO ROOM: Age: 75 Sex: F Admission Date: 11/13/2016 : 1940 Attending Physician: Marsha Jimenez M.D. Primary Care Physician: Derek Odonnell Jr., M.D. HISTORY AND PHYSICAL CHIEF COMPLAINT UTI, altered mental status. HISTORY OF PRESENT ILLNESS The patient is a 75-year-old female with past medical history of adrenal insufficiency, paroxysmal atrial fibrillation, hypertension, gout, tremor who presented to the emergency department from the care home for evaluation of the above. History is obtained from chart review and discussion with ER staff as well as from the patient's daughter who was at bedside. Additionally, the patient is able to provide some history. The patient has apparently not been feeling well for about two weeks. She had decreased appetite. There has been no vomiting. Family states that she has only been up a total of about two hours in the past two weeks. On November 10, 2016, the patient was started on an antibiotic at the care home for urinary tract infection. On November 11, 2016, the patient started having visual hallucinations. Today, she was noted to be somewhat lethargic. She was brought to the emergency department for further evaluation. In the emergency department, the patient's initial oxygen saturation was 87% on room air. Chest x-ray was done and showed nothing acute. CT of the head nothing acute. Laboratory notable for initial glucose of 64 but glucose dropped to 17 during the course of her evaluation. Urinalysis shows findings concerning for urinary tract infection. She is being admitted to [facility] for evaluation and further treatment. She was given 30 mL/kg of normal saline in the emergency department as well as meropenem, vancomycin, tobramycin. Additionally, she received 125 mg of Solu-Medrol. She also received an amp and a half of D50. She was then started on D10. PAST MEDICAL HISTORY 1. Admission to [facility], August 29 through September 03, 2016 for altered mental status, secondary to urosepsis. Urine culture from August 29, 2016 grew greater than 100,000 ESBL E. coli. She was discharged to the care home on Meropenem. 2. Adrenal insufficiency maintained on prednisone followed by Dr. Mojica. 3. Paroxysmal atrial fibrillation, not on chronic anticoagulation. 4. Tremor: Family denies a history of Parkinson. The patient is on carbidopa/levodopa. 5. Osteoarthritis. 6. Hypertension. 7. Gout. Unit #: [id number] #: [id number] Patient: DONNELL TOLENTINO 8. Echocardiogram, December 19, 2013, showed an ejection fraction of 60% with moderate concentric left ventricular hypertrophy, mild mitral regurgitation, mild tricuspid regurgitation, mild aortic regurgitation, right ventricular systolic pressure was elevated at 30-40 mmHg. PAST SURGICAL HISTORY 1. Tonsillectomy. 2. EGD. 3. PEG tube placement and removal. 4. Hysterectomy. 5. Laminectomy. 6. Cholecystectomy. SOCIAL HISTORY The patient lives at a care home. There is no tobacco or alcohol use. CODE STATUS Her code status is a do not resuscitate. She is in a wheelchair. FAMILY HISTORY Notable for her mother having lung cancer. ALLERGIES Penicillin. HOME MEDICATIONS 1. Prednisone 2.5 mg every evening. 2. Invanz 1 g daily for 10 days. 3. Polyethylene glycol 17 g daily in 8 ounces of water. 4. Ipratropium four times daily. 5. Carbidopa/levodopa 10/100 two tablets four times daily. 6. Celebrex 200 mg twice daily with food. 7. Omeprazole twice daily. 8. Senna S twice daily. 9. Nuedexta twice daily. 10. Cranberry juice twice daily. 11. Carvedilol twice daily. 12. Probiotic twice daily. 13. Meclizine twice daily. 14. Zyrtec 10 mg at bedtime. 15. Atorvastatin 10 mg at bedtime. 16. Neurontin 100 mg at bedtime. 17. Mirtazapine 30 mg at bedtime. 18. Zofran 8 mg q.8 hours. 19. Alprazolam 0.25 mg q.8 hours p.r.n. 20. DuoNeb. 21. Tylenol p.r.n. 22. Benadryl p.r.n. 23. Robitussin DM p.r.n. 24. Accu-Cheks. 25. Baclofen 10 mg at bedtime. REVIEW OF SYSTEMS A complete review of systems is negative except as indicated in the HPI but somewhat limited from the patient due to altered mental status. DIAGNOSTIC STUDIES Unit #: [id number] #: [id number] Patient: DONNELL TOLENTINO LABORATORY: Complete blood count is completely normal. Troponin is less than 0.05. INR is 1. Comprehensive metabolic panel notable for sodium of 132, chloride 97, glucose 64 but dropped as low as 17, BUN and creatinine 24 and 1 respectively. Albumin is 3.4. Lactic acid is 0.7. Urinalysis notable for 2+ leukocytosis, 5-10 white blood cells, a few squamous cells. Lactic acid 0.9. IMAGING: Chest x-ray shows no active disease. CT of the head shows nothing acute. There was possible acute sinusitis noted. CT of the abdomen and pelvis shows large stool burden. CARDIOVASCULAR: EKG shows normal sinus rhythm with rate of 60 beats per minute. PHYSICAL EXAMINATION VITAL SIGNS: Temperature is 97.1, pulse 59, respirations 12, blood pressure 177/84, oxygen saturation 87% on room air. GENERAL: The patient is a female who is lethargic but wakes to physical stimuli. HEENT: The head is atraumatic. Mucous membranes are dry. NECK: Supple. Trachea is midline. CARDIOVASCULAR: Regular rate and rhythm. LUNGS: Demonstrate a few scattered rhonchi. Breathing is not labored. ABDOMEN: Soft. She is mildly tender to palpation throughout. Bowel sounds are present in all four quadrants. EXTREMITIES: Nontender with no pedal edema. NEUROLOGIC: The patient is oriented to person, place, and year. She follows commands. PSYCHIATRIC: The patient is lethargic but cooperative. SKIN: Skin of examined areas is warm and dry. ASSESSMENT The patient is a 75-year-old female with: 1. Altered mental status. 2. Possible healthcare-associated pneumonia. 3. Acute respiratory failure, hypoxic. 4. Urinary tract infection with history of extended spectrum beta lactamases urinary tract infection. 5. Hypoglycemia: The patient received an amp and a half of D50. She is currently on D10. She does have a history of adrenal insufficiency, maintained on prednisone, followed by Dr. Mojica. 6. Paroxysmal atrial fibrillation, not on chronic anticoagulation . 7. Hypertension. 8. Gout. 9. Tremor: The patient is on carbidopa/levodopa. 10. Former smoker. 11. Constipation. PLAN 1. Admit to intermediate level. 2. Healthy heart, consistent carb diet when more awake and passes bedside swallow. 3. Neuro checks. 4. TSH, B12, and folate. 5. D10 at 100 mL/hr. Unit #: [id number] #: [id number] Patient: DONNELL TOLENTINO 6. Bedrest. 7. Fall precautions. 8. Blood cultures x2. 9. Sputum culture and sensitivity. 10. Procalcitonin level. 11. Streptococcal and legionella urine antigens. 12. Vancomycin IV, tobramycin IV, and meropenem IV for possible healthcare-associated pneumonia, urinary tract infection, and sinusitis pending further workup. 13. Supplemental oxygen. 14. CT of the chest without contrast for further evaluation of acute respiratory failure and possible healthcare-associated pneumonia. 15. DuoNeb. 16. Solu-Medrol. 17. Urine culture and sensitivity on urine in the lab. 18. Frequent Accu-Cheks. 19. Consult Dr. Mojica regarding adrenal insufficiency with hypoglycemia. 20. Hemoglobin A1c. 21. Serial cardiac enzymes. 22. Repeat labs in the morning. 23. Protonix for gastrointestinal prophylaxis since the patient will be on Solu-Medrol. 24. Fleets enema for constipation. 25. Additional workup and consultants based on above. 26. Regarding code status, the patient is a do not resuscitate. Dictated by Zach Ledbetter/song TD: 11/13/2016 17:23 JOB #: [id number] HISTORY AND PHYSICAL Page 1 of 1 X Krystyna Gutierrez MD X HISTORY AND PHYSICAL
--- NOTE | ~2016-11-13 | DS ---
Unit #: [id number] #: [id number] Patient: DONNELL TOLENTINO [id number] [address] [place], [place] [address] [id number] I MR#: [id number] NAME: DONNELL TOLENTINO. ROOM: 325 Age: 75 Sex: F Admission Date: 11/13/2016 : 1940 Discharge Date: 11/20/2016 Attending Physician: Sly Camp M.D. Primary Care Physician: Derek Odonnell Jr., M.D. DISCHARGE SUMMARY ADMITTING DIAGNOSES 1. Altered mental status. 2. Urinary tract infection. 3. Adrenal crisis. 4. Hypoglycemia. 5. History of paroxysmal atrial fibrillation. 6. Hypertension. 7. Gout. HISTORY OF PRESENT ILLNESS Patient is a 75-year-old lady who is a [facility] resident with a past medical history of adrenal insufficiency, history of paroxysmal afib, hypertension, gout, tremor, presented to the emergency room mainly with a chief complaint of altered mental status and possibly urinary tract infection. She had a recent urinary tract infection with ESBL E. coli and was on Invanz. She has continued with the antimicrobials. HOSPITAL COURSE She was started on Meropenem. Dr. Mojica from endocrinology evaluated her for adrenal insufficiency and he kept her on prednisone 5 mg in the morning and 2.5 mg in the night. Her sodium also dropped down and she had hyponatremia which slowly got corrected. Her mental status has improved. Initially she was not eating well and had hypoglycemia. Later she started to eat well and her sugars improved and she is doing clinically better. I have been talking to patient's children every day. She is doing clinically better. I spoke with the patient and her daughter. They are agreeable to [facility] to the [facility] today. PHYSICAL EXAMINATION ON THE DAY OF THE DISCHARGE VITAL SIGNS: Temperature 97.6, pulse rate 59, respirations 18, blood pressure 150/69. GENERAL: Patient is morbidly obese, alert and oriented x3, lying in the bed in no acute distress. HEENT: Normocephalic and atraumatic. No icterus. PERRLA. Extraocular movements intact. NECK: Neck is supple. No JVD. HEART: S1, S2, irregular. ABDOMEN: Obese, soft, nontender. EXTREMITIES: No edema. Normal peripheral pulses. DISCHARGE MEDICATIONS Her discharge medications include: 1. Prednisone 5 mg q.a.m. and 2.5 mg nightly. 2. Ipratropium one q.i.d. p.r.n. shortness of breath. Unit #: [id number] #: [id number] Patient: DONNELL TOLENTINO 3. Tylenol p.r.n. 4. Neurontin 100 mg q.h.s. 5. Remeron 30 mg q.h.s. 6. Meclizine one tab p.o. b.i.d. p.r.n. 7. Zofran 8 mg q.8 h. p.r.n. nausea or vomiting. 8. Zyrtec 10 mg q.p.m. 9. Benadryl 12.5 mg p.o. q.6 h. p.r.n. for itching. 10. Robitussin cough syrup 10 mL q.6 h. p.r.n. 11. Xanax 0.25 mg p.r.n. anxiety. 12. Coreg 3.125 mg one tab b.i.d. 13. MiraLAX 17 g p.o. daily. 14. Senna one tab p.o. b.i.d. 15. Nuedexta 20/10 mg one capsule b.i.d. 16. Lipitor 10 mg daily, 17. Carbidopa and levodopa two tabs p.o. q.i.d. 18. Saccharomyces boulardii. 19. Prilosec one capsule b.i.d. 20. Baclofen 10 mg p.r.n. for pain. 21. Celebrex 200 mg p.o. b.i.d. DISCHARGE INSTRUCTIONS Accu-Chek q.a.c. and q.h.s. FOLLOWUP She is instructed to follow with her primary care in one to two weeks. Total time spent in her care 35 minutes. Dictated by... Zach Urbina/devon TD: 11/20/2016 15:16 JOB #: [id number] DISCHARGE SUMMARY Page 1 of 1 X X DISCHARGE SUMMARY
--- NOTE | ~2016-11-13 | A ---
[employer] [facility] [employer] Nutrition Therapy DATE: 11/17/16 Patient: DONNELL TOLENTINO Physician: ALIYAH Address: [facility] Room/Bed: [address] [place] [address], Zip: [place] [address] Admit Date: 11/13/16 Date of : 38 Height: 5 6 Weight: 220 99.8 NUTRITIONAL ASSESSMENT: REASON: Consult RE: Decreased appetite 75 yo female admitted for UTI, AMS PMH: Afib, gout, HTN, valvular heart disease, h/o PEG and removal, cholecystectomy, adrenal insufficiency on prednisone Anthropometrics: Ht: 66" Wt: 98.5 kg BMI: 35 Labs: Na+ 130 Accuchecks 59-85 HgbA1C 4.2 (from 11/13) Meds: Prednisone, NaCl, lipitor, D10%, zofran, senokot, miralax, protonix I/O & Bowel function: 2876/2853, last BM 11/16 Skin Integrity: Bruise BUE Edema: BLE trace Diet: Heart healthy/ consistent carbohydrate Assessment: Chart reviewed, events noted. RD consulted to see the pt for decreased appetite. RD spoke with the pt's RN, who is unsure of the pt's intake at meal times today. No family was in the pt's room; however, RN reports that pt's son was asking about oral nutrition supplements. Pt has a h/o of adrenal insufficiency on Prednisone with uncontrolled blood sugars, but no h/o DM. Pt's HgbA1C is WNL. Of note, the pt has a h/o PEG now s/p removal. Pt continues to have AMS, and is unable to answer questions appropriately per RN report. RN states that the pt does well with swallowing pills. RD will order the appropriate supplement and follow up to further determine the pt's nutritional needs. Dx: Inadequate nutrient intake RT decreased appetite AEB need for ONS. Intervention: 1. Heart healthy/ consistent carbohydrate diet 2. Ensure TID Monitoring, Evaluation and Goals: 1. Oral intake; consume >50% of meals and supplements 2. Labs; monitor glucose [employer] Nutrition Therapy DATE: 11/17/16 Patient: DONNELL TOLENTINO Physician: ALIYAH Address: [facility] Room/Bed: [address] [place] [address], Zip: [place] [address] Admit Date: 11/13/16 Date of : [birth year] Height: 5 6 Weight: 220 99.8 Recommendations: 1. Ensure TID with meals for supplemental nutrition. 2. Liberalize the pt's diet if PO intake does not improve. RD will follow up to assess intake. 3. Consider adding an appetite stimulant to the pt's medication regimen to promote adequate nutritional intake. 4. Appreciate staff and family encouraging intake during meals as needed. Pt is at moderate nutritional risk. RD will follow hospital course per protocol. Respectfully, KIERAN CHAPIN RD, LD Food and Nutritional Services [facility] cc: client file
--- NOTE | ~2016-11-13 | CR72 ---
[facility] A Service of [facility] & [facility] RADIOLOGY TEXT RESULTS PATIENT: DONNELL TOLENTINO LOCATION: [place] [address] : 38 UNIT #: [id number] AGE: [address]: Sly Camp MD SEX: F ORDER DR: [id number] [facility] [address] [place], [place] [address] [id number] E MR#: [id number] Acc #: [id number] NAME: DONNELL TOLENTINO. : 1940 SEX: F STUDY DATE/TIME: 11/13/2016 12:07 UNIT: [facility] ROOM: STUDY DESCRIPTION: CR Chest Single View Portable Attending Physician: Marsha Jimenez M.D. Ordering Physician: Marsha Jimenez M.D. Primary Care Physician: Derek Odonnell Jr., M.D. MEDICAL IMAGING REPORT This report is preliminary unless electronic signature is present EXAM AP portable chest radiograph 11/13/2016. COMPARISON 08/31/2016. HISTORY History supplied is shortness of breath atrial fibrillation beginning today. TECHNIQUE An AP portable view is obtained. FINDINGS There is mild cardiac enlargement. The lungs show some chronic pulmonary parenchymal scarring. No acute infiltrates are seen. No pleural fluid is identified. CONCLUSION Stable chest. No active disease. Dictated by... Tim Trujillo M.D. THIS IS AN ELECTRONICALLY VERIFIED REPORT Tim Trujillo M.D. at 11/14/2016 4:41 PM ANTHONY/seamus TD: 11/13/2016 15:48 JOB #: [id number] MEDICAL IMAGING REPORT Page 1 of 1 COPY
--- NOTE | ~2016-11-13 | CT4 ---
[facility] A Service of [facility] & [facility] RADIOLOGY TEXT RESULTS PATIENT: DONNELL TOLENTINO LOCATION: [facility] 325- : 38 UNIT #: [id number] AGE: [address]: Sly Camp MD SEX: F ORDER DR: [id number] [facility] [address] [place], [place] [address] [id number] I MR#: [id number] Acc #: [id number] NAME: DONNELL TOLENTINO. : 1940 SEX: F STUDY DATE/TIME: 11/13/2016 14:00 [facility] ROOM: [facility] STUDY DESCRIPTION: CT Abd and Pelv Wo Cont Attending Physician: Krystyna Gutierrez M.D. Ordering Physician: Marsha Jimenez M.D. Primary Care Physician: Derek Odonnell Jr., M.D. MEDICAL IMAGING REPORT This report is preliminary unless electronic signature is present EXAM CT abdomen and pelvis 11/13/2016 HISTORY New onset confusion today with hallucinations. UTI. Diffuse abdomen pain x today. TECHNIQUE CT abdomen and pelvis performed without administration of oral or intravenous contrast. Study somewhat degraded by artifact from the patient's arms which could not be elevated above the head. This CT exam was performed with one or more of the following radiation dose reduction techniques: automatic exposure control, adjustment of mA and/or kV according to patient size, and iterative reconstruction. COMPARISON STUDIES 09/02/2016. FINDINGS Mild subpleural fibrotic change at the lung bases. There is evidence of mild basilar bronchiectasis without mucous plugging and there is evidence of underlying emphysema. Mild cardiac enlargement. Coronary arterial calcifications. The liver is unremarkable. Patient is status post cholecystectomy. 7-8 mm density in the gallbladder fossa is unchanged from prior examination and could represent dropped stone or surgical clip with associated dystrophic calcification. I do not believe it is intraductal. There is no biliary ductal dilatation. Appearance unchanged from prior study. Spleen, pancreas, adrenal glands unremarkable. No hydronephrosis or nephrolithiasis. There is a right lower pole renal cyst which is unchanged. No perinephric fluid collections. The ureters are unremarkable. [facility]. [facility] A Service of [facility] & [facility] RADIOLOGY TEXT RESULTS PATIENT: DONNELL TOLENTINO LOCATION: [facility] [address] [facility] #: [id number] : 38 UNIT #: [id number] AGE: [address]: Sly Camp MD SEX: F ORDER DR: CT PELVIS: No inguinal adenopathy. Urinary bladder decompressed by a Rahman catheter. No pelvic fluid collection. No pelvic or retroperitoneal adenopathy. The distal esophagus, stomach, small bowel unremarkable. Appendix not clearly identified but no right lower quadrant or pericecal inflammatory change is seen. Colon shows scattered uncomplicated diverticula. Physiologic stool burden to the level of the rectum. Large volume of stool in the rectum. The rectum measures up to 8.3 cm in maximum diameter. No perirectal inflammatory change, wall thickening or obstructing process seen. The appearance could be a reflection of constipation or fecal impaction. Correlate clinically. Atherosclerotic arterial calcifications. No aneurysm. Extensive degenerative change in the spine. No change from prior study. No evidence of acute abnormality. IMPRESSION 1. Abnormally large stool burden in the rectum with resulting rectal dilatation. Rectum measures up to 8.3 cm in maximum diameter. There is no wall thickening, perirectal inflammatory change or obstructing process seen. This may be a reflection of constipation or fecal impaction. Correlate clinically. There is no proximal colonic dilatation. Colon otherwise notable only for scattered uncomplicated diverticulosis. 2. Small bowel unremarkable. Appendix not clearly visualized but no right lower quadrant or pericecal inflammatory change is seen. 3. No renal calculi or obstruction. No perinephric or periureteral inflammatory change. 4. Right lower pole renal cyst, unchanged. 5. Status post cholecystectomy. 7-8 mm density in the gallbladder fossa, unchanged from prior examination. The appearance is somewhat nonspecific and could represent stable dropped calculus or surgical clip with dystrophic calcification. I believe this is outside the ductal system. There is no ductal dilatation. 6. Status post hysterectomy. No suspicious adnexal findings. 7. No abnormal intracranial fluid collections. 8. Emphysema at lung bases. Mild bronchiectasis without mucous plugging. Mild subpleural fibrotic change. Please see remainder of incidental findings in body of report above. Dictated by... Tim Dick M.D. THIS IS AN ELECTRONICALLY VERIFIED REPORT Tim Dick M.D. at 11/14/2016 11:32 PM RAJESH/frankie TD: 11/13/2016 20:59 JOB #: [id number] [facility] A Service of [facility] RADIOLOGY TEXT RESULTS PATIENT: DONNELL TOLENTINO LOCATION: [place] [address] : 38 UNIT #: [id number] AGE: [address]: Sly Camp MD SEX: F ORDER DR: MEDICAL IMAGING REPORT Page 1 of 1 COPY
--- NOTE | ~2016-11-13 | CT57 ---
[facility] A Service [facility] RADIOLOGY TEXT RESULTS PATIENT: DONNELL TOLENTINO LOCATION: [facility] 325- : 38 UNIT #: [id number] AGE: [address]: Sly Camp MD SEX: F ORDER DR: [id number] [facility] [address] [place], [place] [address] [id number] I MR#: [id number] Acc #: [id number] NAME: DONNELL TOLENTINO. : 1940 SEX: F STUDY DATE/TIME: 11/13/2016 18:06 UNIT: [address] ROOM: [facility] STUDY DESCRIPTION: CT Chest Wo Cont Attending Physician: Sly Camp M.D. Ordering Physician: Krystyna Gutierrez M.D. Primary Care Physician: Derek Odonnell Jr., M.D. MEDICAL IMAGING REPORT This report is preliminary unless electronic signature is present EXAM Chest CT without contrast 11/13/2016 HISTORY New onset of confusion today with a history of atrial fibrillation. Acute respiratory failure and shortness breath onset today. TECHNIQUE Axial images were obtained without contrast and evaluated at lung and mediastinal windows. This CT exam was performed with one or more of the following radiation dose reduction techniques: automatic exposure control, adjustment of mA and/or kV according to patient size, and iterative reconstruction. COMPARISON STUDIES Comparison scan from 12/04/2013 FINDINGS Chest images at mediastinal window show no enlarged mediastinal or hilar lymph nodes. There is no evidence of pleural or pericardial fluid. The aorta is tortuous and ectatic. Lung window imaging shows moderate interstitial fibrosis at both lung bases. There is mild interstitial fibrosis seen at the upper lung neumann. This shows no significant progression since the previous examination in 2013. Generalized esophageal dilatation is again noted. IMPRESSION Pulmonary fibrosis stable since the previous chest CT in 2013. Esophageal dilatation without evidence of esophageal impaction. No acute findings. No acute infiltrates to suggest pneumonia. [facility] A Service [facility] RADIOLOGY TEXT RESULTS PATIENT: DONNELL TOLENTINO LOCATION: [place] [address] : 38 UNIT #: [id number] AGE: [address]: Sly Camp MD SEX: F ORDER DR: STAT * RESULT Dictated by... Graham Hunt M.D. THIS IS AN ELECTRONICALLY VERIFIED REPORT Graham Hunt M.D. at 11/14/2016 10:02 AM Charleen TD: 11/13/2016 18:28 JOB #: [id number] MEDICAL IMAGING REPORT Page 1 of 1 COPY
--- NOTE | ~2016-11-13 | EKG ---
PATIENT: DONNELL TOLENTINO UNIT #: [id number] Ventricular Rate: 60 BPM Atrial Rate: 60 BPM P-R Interval: 198 ms QRS Duration: 154 ms Q-T Interval: 484 ms QTC Calculation(Bezet): 484 ms P Grundy: 95 degrees Calculated R Grundy: -69 degrees Calculated T Grundy: 0 degrees Diagnosis Line: Normal sinus rhythm Diagnosis Line: Right bundle branch block with repolarization Diagnosis Line: abnormality Diagnosis Line: Left anterior fascicular block Diagnosis Line: Bifascicular block Diagnosis Line: Voltage criteria for left ventricular hypertrophy Diagnosis Line: Abnormal ECG Diagnosis Line: When compared with ECG of 29-AUG-2016 02:14, Diagnosis Line: Criteria for Septal infarct are no longer Present Diagnosis Line: Confirmed by ALISA ALAN MD ([id number]) on 11/14/2016 Diagnosis Line: 8:01:40 PM INTERPRETING MD: DAYANNA RUGGIERO
--- NOTE | ~2016-11-13 | CO ---
Unit #: [id number] #: [id number] Patient: DONNELL TOLENTINO [id number] [address] [address] [id number] I MR#: [id number] NAME: DONNELL TOLENTINO ROOM: 325 Age: 75 Sex: F Admission Date: 11/13/2016 : 1940 Attending Physician: Sly Camp M.D. Primary Care Physician: Derek Odonnell Jr., M.D. Consultation Date: 11/13/2016 CONSULTATION REPORT REASON FOR CONSULTATION Adrenal crisis. HISTORY OF PRESENT ILLNESS This is a 75-year-old female with a history of multiple medical problems including adrenal insufficiency, who is a halfway resident, was transferred from the halfway for the change in mental status. On her arrival in the emergency room, she was very lethargic and had a change in mental status. She was also with dropped hypoglycemia with blood glucose dropped to 70. She was treated with the IV Solu-Medrol. The patient was diagnosed with UTI with ESBL and was treated with IV antibiotics. We have been asked to see the patient for further management for adrenal crisis. PAST MEDICAL HISTORY Remarkable for paroxysmal atrial fibrillation, hypertension, valvular heart disease. PAST SURGICAL HISTORY PEG placement and removal, hysterectomy, laminectomy, cholecystectomy. SOCIAL HISTORY Lives in halfway. No tobacco or alcohol. CODE STATUS She is DNR. FAMILY HISTORY Noncontributory. ALLERGIES Penicillin. MEDICATIONS Home medications and halfway medication list was reviewed. She was on prednisone 5 mg in the morning and 2.5 mg in the evening. REVIEW OF SYSTEMS Unobtainable as the patient is very lethargic and sleeping. PHYSICAL EXAMINATION GENERAL: She is lying in the bed. No acute respiratory distress. VITAL SIGNS: Temperature was 97.1. She is hemodynamically stable. HEENT: Pupils are reactive to light. NECK: Supple. No thyromegaly noted. Unit #: [id number] #: [id number] Patient: DONNELL TOLENTINO CHEST: Decreased air entry bilaterally. CVS: Regular rhythm. S1, S2. ABDOMEN: Soft and nontender. Bowel sounds positive. EXTREMITIES: Unable to assess. NEUROLOGIC: Unable to assess. DIAGNOSTIC STUDIES LABORATORY RESULTS: Labs were reviewed. Glucose is 64, BUN 21, creatinine 1.0. Sodium 132, potassium 4.0, chloride 97. ASSESSMENT 1. Adrenal crisis due to the urosepsis. 2. Hyponatremia. 3. Hypoglycemia. PLAN Continue aggressive hydration. Start hydrocortisone 50 mg IV every 6 hourly. Monitor electrolytes closely. Monitor blood sugars. Continue IV antibiotics and supportive care. Thanks again for consultation. Dictated by... Zach Bell/kathy TD: 11/15/2016 04:12 JOB #: [id number] CONSULTATION REPORT Page 1 of 1 X Mallorie Mojica MD X CONSULTATION REPORT
[~2016-11-13 10:35] MED LIST changes: -ACCU-CHEK1 EAC1; -ACEPHEN650 MG PR; -AMIODARONE HCL100 MG PO; -ATORVASTATIN CA10 MG PO; -BACLOFEN10 MG PO; -CELECOXIB200 MG PO; -COREG3.125 MG PO; -DIGESTIVE PROB250 MG PO; -FLOVENT DISKUS50 MCG INH; -INVANZ1 GM IV; -IPRATR-ALBUTEROL3 ML INH; -IPRATROPIU0.2 MG/1 M INH; -LASIX20 MG PO; -MECLIZINE HCL12.5 M2 PO; -MIRTAZAPINE30 M1 PO; -NEURONTIN100 MG PO; -OMEPRAZOLE20 M2 PO; -PATIENT'S PHARMACY; -POLYETHYLENE GLY1 GM PO; -PREDNISONE PO; -ROBITUSSIN COU237 M2 PO; -TRAMADOL HCL50 M2 PO; -TRIMPEX100 MG PO; -ZOFRAN8 MG PO; -ZYRTEC10 M1 PO; -[UNRECOGNIZED DRUG - OTHER] PO
[2016-11-13] MEDS ORDERED: TRAMADOL HCL50 M2 PO (11:40)
[2016-11-13] MEDS ORDERED: PREDNISONE PO (11:41)
[2016-11-13] MEDS ORDERED: FERRO-TIME325 MG PO (11:41)
[2016-11-13] MEDS ORDERED: LASIX20 MG PO (11:41)
[2016-11-13] MEDS ORDERED: TRIMPEX100 MG PO (11:42)
[2016-11-13] MEDS ORDERED: FLOVENT DISKUS50 MCG INH (11:43)
[2016-11-13] MEDS ORDERED: AMIODARONE HCL100 MG PO (11:43)
[2016-11-13] MEDS ORDERED: INVANZ1 GM IV (11:44)
[2016-11-13] MEDS ORDERED: POLYETHYLENE GLY1 GM PO (11:47)
[2016-11-13] MEDS ORDERED: PATIENT'S PHARMACY (11:48)
[2016-11-13] MEDS ORDERED: IPRATROPIU0.2 MG/1 M INH (11:49)
[2016-11-13] MEDS ORDERED: CARBIDOPA-LEVO1 EACH PO (11:50)
[2016-11-13] MEDS ORDERED: CELECOXIB200 MG PO (11:53)
[2016-11-13] MEDS ORDERED: OMEPRAZOLE20 M2 PO (12:03)
[2016-11-13] MEDS ORDERED: NUEDEXTA 20-101 EACH PO (12:03)
[2016-11-13] MEDS ORDERED: SENNA8.6 M1 PO (12:03)
[2016-11-13] MEDS ORDERED: [UNRECOGNIZED DRUG - OTHER] PO (12:04)
[2016-11-13] MEDS ORDERED: COREG3.125 MG PO (12:05)
[2016-11-13] MEDS ORDERED: LIORESAL10 MG PO ×2 (12:06→12:22)
[2016-11-13] MEDS ORDERED: MECLIZINE HCL12.5 M2 PO (12:06)
[2016-11-13] MEDS ORDERED: DIGESTIVE PROB250 MG PO (12:06)
[2016-11-13] MEDS ORDERED: ZYRTEC10 M1 PO (12:07)
[2016-11-13] MEDS ORDERED: ATORVASTATIN CA10 MG PO (12:07)
[2016-11-13] MEDS ORDERED: NEURONTIN100 MG PO (12:08)
[2016-11-13] MEDS ORDERED: MIRTAZAPINE30 M1 PO (12:08)
[2016-11-13] MEDS ORDERED: ZOFRAN8 MG PO (12:08)
[2016-11-13] MEDS ORDERED: ALPRAZOLAM0.25 MG PO (12:09)
[2016-11-13] MEDS ORDERED: IPRATR-ALBUTEROL3 ML INH (12:10)
[2016-11-13] MEDS ORDERED: ACEPHEN650 MG PR (12:11)
[2016-11-13] MEDS ORDERED: ROBITUSSIN COU237 M2 PO (12:12)
[2016-11-13] MEDS ORDERED: BENADRYL12.5 MG PO (12:12)
[2016-11-13] MEDS ORDERED: ACCU-CHEK1 EAC1 (12:13)
[2016-11-13 12:19] LABS: BASOPHIL% 0.7 % (0-2.5); EOSINOPHIL# 0.2 X10e3 (0-0.7); EOSINOPHIL% 2.5 % (0.0-7.0); HEMATOCRIT 36.1 % (35.0-45.0); HEMOGLOBIN 12.2 gm/dL (12.0-16.0); LYMPHOCYTE# 1.6 X10e3 (1.0-3.5); LYMPHOCYTE% 25.6 % (17.0-45.0); MEAN CELL VOLUME 92.7 FL (83-96); MEAN CORPUSCULAR HEMOGLOBIN 31.3 PG (28-34); MEAN CORPUSCULAR HGB CONC 33.8 g/dL (30-36); MEAN PLATELET VOLUME 8.2 FL (6.5-11.5); MONOCYTE# 0.7 X10e3 (0-1.0); MONOCYTE% 11.3 % (3.0-12.0); NEUTROPHIL# 3.8 X10e3 (1.5-7.1); NEUTROPHIL% 59.9 % (40-75); PLATELET COUNT 157 X10e3 (140-420); RED CELL DISTRIBUTION WIDTH 15.5 % (11.0-15.5); WHITE BLOOD COUNT 6.4 X10e3 (4.0-10.5)
[2016-11-13 12:20] LABS: DIFF IND NO
[2016-11-13] MEDS ORDERED: BACLOFEN10 MG PO (12:22)
[2016-11-13 12:23] LABS: POC - CKMB 1.4 ng/mL (0.0-7.9); POC - TROPONIN <0.05 ng/mL (<=0.05)
[2016-11-13 12:33] LABS: PROTHROMBIN TIME (PATIENT) 10.8 SECONDS (9.6-11.5)
[2016-11-13 12:55] LABS: ALBUMIN SERUM 3.4 g/dL (3.5-5.0); BILIRUBIN, DIRECT 0.2 mg/dL (0.0-0.2); BILIRUBIN,INDIRECT 0.4 mg/dL (0.0-0.9); BILIRUBIN,TOTAL 0.6 mg/dL (0.2-2.0); CALCIUM SERUM 9.4 mg/dL (8.4-10.2); GLOM FILT RATE Estimated 54.3 mL/min (>60)
[2016-11-13 13:05] LABS: URINE SOURCE CLEAN CATCH
[2016-11-13 13:15] LABS: URINE APPEARANCE CLEAR; URINE BILIRUBIN NEG (NEG); URINE BLOOD NEG (NEG); URINE COLOR YELLOW; URINE GLUCOSE NEG (NEG); URINE KETONE 1+ (NEG); URINE LEUKOCYTE ESTERASE 2+ (NEG); URINE NITRATE NEG (NEG); URINE PH 5.5 (5-8); URINE PROTEIN NEG (NEG); URINE SPECIFIC GRAVITY 1.009 (1.003-1.035); URINE UROBILINOGEN 0.2 MG/DL (NEG)
[2016-11-13 13:17] LABS: CULTURE INDICATED? YES; URBCS1 AUWI 0-2 /[HPF] (0-2); URINE BACTERIA AUWI NEG (NEGATIVE); URINE SQUAMOUS EPITHELIAL CELL FEW /[HPF]
[2016-11-13 14:59] LABS: POC - CKMB 1.1 ng/mL (0.0-7.9); POC - TROPONIN <0.05 ng/mL (<=0.05)
[2016-11-13 21:50] LABS: CK TOTAL 42 IU/L (26-140)
[2016-11-13 22:17] LABS: FOLATE (FOLIC ACID) 13.5 ng/mL (>5.8)
[2016-11-14 03:34] LABS: HEMATOCRIT 35.3 % (35.0-45.0); HEMOGLOBIN 11.7 gm/dL (12.0-16.0); MEAN CELL VOLUME 92.3 FL (83-96); MEAN CORPUSCULAR HEMOGLOBIN 30.6 PG (28-34); MEAN CORPUSCULAR HGB CONC 33.2 g/dL (30-36); RED BLOOD COUNT 3.83 X10e (3.90-5.30); RED CELL DISTRIBUTION WIDTH 15.7 % (11.0-15.5); WHITE BLOOD COUNT 2.8 X10e3 (4.0-10.5)
[2016-11-14 03:44] LABS: PROTHROMBIN TIME (PATIENT) 10.7 SECONDS (9.6-11.5)
[2016-11-14 03:45] LABS: CK TOTAL 50 IU/L (26-140)
[2016-11-14 03:50] LABS: ALBUMIN SERUM 3.1 g/dL (3.5-5.0); BILIRUBIN,TOTAL 0.5 mg/dL (0.2-2.0); CALCIUM SERUM 8.6 mg/dL (8.4-10.2); CREATININE SERUM 0.9 mg/dL (0.6-1.4); GLOM FILT RATE Estimated 61.7 mL/min (>60); POTASSIUM 4.1 mmol/L (3.5-5.1); PROTEIN TOTAL SERUM 5.4 g/dL (6.0-8.3)
[2016-11-14 10:35] LABS: LEGIONELLA AG URINE NEG (NEG)
[2016-11-15 04:17] LABS: HEMATOCRIT 32.5 % (35.0-45.0); HEMOGLOBIN 10.9 gm/dL (12.0-16.0); MEAN CELL VOLUME 92.5 FL (83-96); MEAN CORPUSCULAR HEMOGLOBIN 31.1 PG (28-34); MEAN CORPUSCULAR HGB CONC 33.6 g/dL (30-36); MEAN PLATELET VOLUME 8.1 FL (6.5-11.5); RED BLOOD COUNT 3.51 X10e (3.90-5.30); RED CELL DISTRIBUTION WIDTH 15.9 % (11.0-15.5)
[2016-11-15 04:24] LABS: WHITE BLOOD COUNT 12.4 X10e3 (4.0-10.5)
[2016-11-15 04:46] LABS: BUN/CREATININE RATIO 15.55; CALCIUM SERUM 8.6 mg/dL (8.4-10.2); CREATININE SERUM 0.9 mg/dL (0.6-1.4); GLOM FILT RATE Estimated 61.7 mL/min (>60); POTASSIUM 3.8 mmol/L (3.5-5.1)
[2016-11-16 08:32] LABS: BUN/CREATININE RATIO 14.44; CALCIUM SERUM 8.8 mg/dL (8.4-10.2); CREATININE SERUM 0.9 mg/dL (0.6-1.4); GLOM FILT RATE Estimated 61.7 mL/min (>60); POTASSIUM 4.1 mmol/L (3.5-5.1)
[2016-11-16 09:33] LABS: HEMOGLOBIN 10.7 gm/dL (12.0-16.0); MEAN CELL VOLUME 92.5 FL (83-96); MEAN CORPUSCULAR HGB CONC 33.6 g/dL (30-36); MEAN PLATELET VOLUME 8.4 FL (6.5-11.5); RED BLOOD COUNT 3.46 X10e (3.90-5.30); RED CELL DISTRIBUTION WIDTH 15.9 % (11.0-15.5)
[2016-11-18 06:02] LABS: HEMATOCRIT 31.9 % (35.0-45.0); HEMOGLOBIN 10.9 gm/dL (12.0-16.0); MEAN CELL VOLUME 91.7 FL (83-96); MEAN CORPUSCULAR HEMOGLOBIN 31.2 PG (28-34); MEAN PLATELET VOLUME 7.7 FL (6.5-11.5); RED BLOOD COUNT 3.48 X10e (3.90-5.30); RED CELL DISTRIBUTION WIDTH 15.5 % (11.0-15.5); WHITE BLOOD COUNT 8.1 X10e3 (4.0-10.5)
[2016-11-18 07:23] LABS: CALCIUM SERUM 8.5 mg/dL (8.4-10.2); CREATININE SERUM 0.5 mg/dL (0.6-1.4); GLOM FILT RATE Estimated 93.4 mL/min (>60); POTASSIUM 3.8 mmol/L (3.5-5.1)
[2016-11-19 09:19] LABS: HEMATOCRIT 31.8 % (35.0-45.0); MEAN CELL VOLUME 91.2 FL (83-96); MEAN CORPUSCULAR HEMOGLOBIN 31.5 PG (28-34); MEAN CORPUSCULAR HGB CONC 34.5 g/dL (30-36); MEAN PLATELET VOLUME 7.7 FL (6.5-11.5); RED BLOOD COUNT 3.49 X10e (3.90-5.30); RED CELL DISTRIBUTION WIDTH 15.5 % (11.0-15.5); WHITE BLOOD COUNT 7.9 X10e3 (4.0-10.5)
[2016-11-19 10:12] LABS: CALCIUM SERUM 8.6 mg/dL (8.4-10.2); CREATININE SERUM 0.6 mg/dL (0.6-1.4); GLOM FILT RATE Estimated 87.9 mL/min (>60); POTASSIUM 4.2 mmol/L (3.5-5.1)
[2016-11-20 07:26] LABS: BUN/CREATININE RATIO 12.85; CALCIUM SERUM 8.6 mg/dL (8.4-10.2); CREATININE SERUM 0.7 mg/dL (0.6-1.4); GLOM FILT RATE Estimated 83.6 mL/min (>60); POTASSIUM 4.4 mmol/L (3.5-5.1)
== END 2016-11-20 20:16 | DRG 871 ==
LOC: CED 10:35 → C3A PCU 16:55 → CEDOF 16:55 → CED 17:28 → CEDOF 19:43 → C3A PCU 19:43
PROVIDERS: Emergency Medicine; Family Medicine; Internal Medicine
DX: A41.9 Sepsis, unspecified organism (principal); J18.9 Pneumonia, unspecified organism; J96.01 Acute respiratory failure with hypoxia; G92 Toxic encephalopathy; E27.2 Addisonian crisis; N39.0 Urinary tract infection, site not specified; I48.0 Paroxysmal atrial fibrillation; I08.3 Combined rheumatic disorders of mitral, aortic and tricuspid valves; E87.1 Hypo-osmolality and hyponatremia; I10 Essential (primary) hypertension; M10.9 Gout, unspecified; R25.1 Tremor, unspecified; M19.90 Unspecified osteoarthritis, unspecified site; Z90.710 Acquired absence of both cervix and uterus; Z90.49 Acquired absence of other specified parts of digestive tract; Z88.0 Allergy status to penicillin; E16.2 Hypoglycemia, unspecified; K59.00 Constipation, unspecified; Z87.891 Personal history of nicotine dependence; Z66 Do not resuscitate
CPT/HCPCS: 36415; 51701; 70450; 71010; 71250; 74176; 80048; 80053; 80076; 80200; 80202; 81003; 82308; 82550; 82553; 82607; 82746; 82947; 83036; 83605; 84443; 84484; 85025; 85027; 85610; 85730; 87040; 87070; 87086; 87205; 87449; 87899; 93005; 94640; 94760; 96365; 96366; 96367; 96368; 96375; 96376; 97162; 97167; 99291; C9113; G8978-GP; G8979-GP; G8980-GP; G8987-GO; G8988-GO; G8989-GO; J0360; J1720; J2185; J2405; J2930; J3260; J3370